=== PATIENT | female | born 1985 | race Caucasian/White ===

== ENCOUNTER 2016-07-10 22:48 | Emergency (ER) | payer SELFPAY ==
[2016-07-10] MEDS ORDERED: Proparacaine 0.5% Ophth Soln 15 ML Bottle EYELF STA (23:20)
[2016-07-10] MEDS ORDERED: Diphtheria,Pertussis(Acell),Tetanus Vaccine 0.5 ML Syringe IM ONE (23:55)
[2016-07-11] MEDS ORDERED: Acetaminophen/HYDROcodone 325-5 MG Tab PO ONE (00:10)
--- NOTE | 2016-07-11 00:12 | EDM.PDOC ---
ED HPI EYE COMPLAINT - General Stated Complaint: PAIN LT EYE Time Seen by Provider: 07/10/16 23:30 Source: Reports: Patient History Limitations: Reports: No limitations - History of Present Illness INITIAL COMMENTS - FREE TEXT/NARRATIVE: HISTORY AND PHYSICAL: History of present illness: [31-year-old female presents to the emergency department complaining of left eye injury. Apparently daughter accidentally poked patient in the eye and she said discomfort and foreign body sensation since. Vision baseline.] Review of systems: As per history of present illness and below otherwise all systems reviewed and negative. Past medical history: As per history of present illness and as reviewed below otherwise noncontributory. Surgical history: As per history of present illness and as reviewed below otherwise noncontributory. Social history: No reported history of drug or alcohol abuse. Family history: As per history of present illness and as reviewed below otherwise noncontributory. Physical exam: HEENT: Atraumatic, normocephalic, pupils reactive, negative for conjunctival pallor or scleral icterus, mucous membranes moist, throat clear, neck supple, nontender, trachea midline. Lungs: Clear to auscultation, breath sounds equal bilaterally, chest nontender. Heart: S1S2, regular, negative for clicks, rubs, or JVD. Abdomen: Soft, nondistended, nontender. Negative for masses or hepatosplenomegaly. Negative for costovertebral tenderness. Pelvis: Stable nontender. Genitourinary: Deferred. Rectal: Deferred. Extremities: Atraumatic, negative for cords or calf pain. Neurovascular unremarkable. Neuro: Awake, alert, oriented. Cranial nerves II through XII unremarkable. Cerebellum unremarkable. Motor and sensory unremarkable throughout. Exam nonfocal. Diagnostics: [Small area dye uptake with fluorescein staining consistent with corneal injury. No perforation of anterior chamber] Therapeutics: [Relief with Alcaine. Patient given antibiotics for the eye] Impression: [] Plan: [Patient has corneal injury/abrasion. Tetanus updated. Of some ointment prescribed. Patient aware to followup with ophthalmology in one day and return immediately for new severe or worsening symptoms] Definitive disposition and diagnosis as appropriate pending reevaluation and review of above. - Related Data Allergies/ADRs: Allergies ibuprofen Allergy (Verified 07/28/16 11:28) throat swelling Home Meds: Ambulatory Orders Medication Instructions Recorded Confirmed . 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: 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 History: Reports: None Neurological History: Reports: None Hematologic History: Reports: None - Infectious Disease History Infectious Disease History: Reports: None - Past Surgical History Female Surgical History: Reports: section, Tubal ligation Social & Family History - Family History Family Medical History: Noncontributory - Tobacco Use Smoking Status *Q: Former Smoker Second Hand Smoke Exposure: No - Caffeine Use Caffeine Use: Reports: Coffee Caffeine Use Comment: 2cups/day - Recreational Drug Use Recreational Drug Use: No ED ROS GENERAL - Review of Systems Review Of Systems: See Below (Per history of present illness) ED EXAM GENERAL W FULL EYE - Physical Exam Exam: See Below (Per history of present illness) Course - Vital Signs Last Recorded V/S: Last Vital Signs Temp 36.5 C 07/11/16 00:26 Pulse 71 07/11/16 00:26 Resp 16 07/11/16 00:26 BP 126/70 07/11/16 00:26 Pulse Ox 100 07/11/16 00:26 - Orders/Labs/Meds Meds: Medications Discontinued Medications Generic Name Dose Route Start Last Admin Trade Name Sola PRN Reason Stop Dose Admin Acetaminophen/Hydrocodone Bitart 1 tab 07/11/16 00:10 07/11/16 00:21 [place] 325-5 Mg PO 07/11/16 00:11 1 tab ONETIME ONE Administration Diphtheria/Tetanus/Acell Pertussis 0.5 ml 07/10/16 23:55 07/11/16 00:08 Adacel IM 07/10/16 23:56 0.5 ml .ONCE ONE Administration Proparacaine HCl 1 ml 07/10/16 23:20 07/10/16 23:28 Proparacaine 0.5% Ophth Soln EYELF 07/10/16 23:21 1 ml NOW STA Administration Departure - Departure Time of Disposition: 00:07 Disposition: Home, Self-Care 01 Condition: good Clinical Impression: Corneal injury of left eye, Anxiety, Tetanus-diphtheria vaccination administered at current visit Instructions: Corneal Abrasion Referrals: PCP,None [Primary Care Provider] - Forms: ED Department Discharge Additional Instructions: You have a corneal abrasion of your left eye. Your tetanus is updated. This will be good for 5 years. Use your antibiotic drops one drop every 2 hours up to total of 6 drops each day. Apply one quarter-inch of erythromycin ointment at bedtime. Followup with an supervisor special services in one to 2 days. Take ibuprofen and Tylenol as needed for pain tonight.
[2016-07-11 00:27] VITALS: BP 126/70
== END 2016-07-11 00:27 | disposition home or self-care (01) ==
LOC: MW.ED 22:48
DX: S05.02XA Injury of conjunctiva and corneal abrasion without foreign body, left eye, initial encounter (principal); Z23 Encounter for immunization; Z87.891 Personal history of nicotine dependence; X58.XXXA Exposure to other specified factors, initial encounter
CPT/HCPCS: 90471; 90715; 99283; A9270

== ENCOUNTER 2016-07-16 05:09 | Observation (INO) | payer SELFPAY ==
[2016-07-16 05:56] LABS: CHLORIDE,CL 106 mmol/L (98-110); SODIUM,NA 140 mmol/L (136-146)
[2016-07-16] MEDS ORDERED: Sodium Chloride 0.9% 1,000 ML IV ONE (06:09)
--- NOTE | 2016-07-16 06:10 | EDM.PDOC ---
ED HPI GENERAL MEDICAL PROBLEM - General Chief Complaint: Behavioral/Psych Stated Complaint: OVERDOSE Time Seen by Provider: 07/16/16 06:21 - History of Present Illness INITIAL COMMENTS - FREE TEXT/NARRATIVE: HISTORY AND PHYSICAL: History of present illness: Patient is a 30-year-old white female with the chief complaint of suicide attempt via overdose he states he took an unknown but estimated number of approximately 30 Paxil she denies any other ingestion or concerns she is history of depression and has been hospitalized psychiatrically on prior occasions patient also admits to using methamphetamine Review of systems: As per history of present illness and below otherwise all systems reviewed and negative. Past medical history: As per history of present illness and as reviewed below otherwise noncontributory. Surgical history: As per history of present illness and as reviewed below otherwise noncontributory. Social history: No reported history of drug or alcohol abuse. Family history: As per history of present illness and as reviewed below otherwise noncontributory. Physical exam: HEENT: Atraumatic, normocephalic, pupils reactive, negative for conjunctival pallor or scleral icterus, mucous membranes moist, throat clear, neck supple, nontender, trachea midline. Lungs: Clear to auscultation, breath sounds equal bilaterally, chest nontender. Heart: S1S2, regular, negative for clicks, rubs, or JVD. Abdomen: Soft, nondistended, nontender. Negative for masses or hepatosplenomegaly. Negative for costovertebral tenderness. Pelvis: Stable nontender. Genitourinary: Deferred. Rectal: Deferred. Extremities: Atraumatic, negative for cords or calf pain. Neurovascular unremarkable. Neuro: Awake, alert, oriented anxious tearful. Cranial nerves II through XII unremarkable. Cerebellum unremarkable. Motor and sensory unremarkable throughout. Exam nonfocal. Diagnostics: CBC CMP ECG urine drug screen aspirin Tylenol level poison control times Therapeutics: Normal saline 1 L bolus Impression: #1 depressive episode with suicide attempt #2 Paxil overdose #3 substance abuse Definitive disposition and diagnosis as appropriate pending reevaluation and review of above. 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: 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 History: Reports: None Neurological History: Reports: None Hematologic History: Reports: None - Infectious Disease History Infectious Disease History: Reports: None - Past Surgical History Female Surgical History: Reports: section, Tubal ligation Social & Family History - Family History Family Medical History: Noncontributory - Tobacco Use Smoking Status *Q: Never Smoker Second Hand Smoke Exposure: No - Caffeine Use Caffeine Use: Reports: Coffee Caffeine Use Comment: 2cups/day - Recreational Drug Use Recreational Drug Use: Yes Drug Use in Last 12 Months: Yes Recreational Drug Type: Reports: Methamphetamine ED ROS GENERAL - Review of Systems Review Of Systems: ROS reveals no pertinent complaints other than HPI. ED EXAM, GENERAL - Physical Exam Exam: See Below (See dictation) Course - Vital Signs Last Recorded V/S: Last Vital Signs Temp 37.0 C 07/16/16 05:13 Pulse 86 07/16/16 05:42 Resp 20 07/16/16 05:42 BP 138/78 07/16/16 05:42 Pulse Ox 94 L 07/16/16 05:42 - Orders/Labs/Meds Orders: Active Orders 24 hr Category Date Time Status EKG Documentation Completion [RC] STAT Care 07/16/16 05:20 Active DRUG SCREEN, URINE [URCHEM] Stat Lab 07/16/16 05:20 Uncollected FREE T3 [REF] Stat Lab 07/16/16 05:28 Received UA W/MICROSCOPIC [URIN] Stat Lab 07/16/16 05:20 Uncollected Sodium Chloride 0.9% [Normal Saline] 1,000 ml Med 07/16/16 06:09 Active IV .Bolus Medication Orders Sodium Chloride (Normal Saline) 1,000 mls @ 999 mls/hr IV .Bolus ONE Stop: 07/16/16 07:09 Last Admin: 07/16/16 06:14 Dose: 999 mls/hr Labs: Laboratory Tests 07/16/16 07/16/16 Range/Units 05:28 05:28 WBC 9.04 (4.0-11.0) K/uL RBC 4.31 (4.30-5.90) M/uL Hgb 13.0 (12.0-16.0) g/dL Hct 38.8 (36.0-46.0) % MCV 90.0 (80.0-98.0) fL MCH 30.2 (27.0-32.0) pg MCHC 33.5 (31.0-37.0) g/dL RDW Std Deviation 42.9 (28.0-62.0) fl RDW Coeff of Sulaiman 13 (11.0-15.0) % Plt Count 317 (150-400) K/uL MPV 9.70 (7.40-12.00) fL Neut % (Auto) 67.9 (48.0-80.0) % Lymph % (Auto) 18.9 (16.0-40.0) % [place] % (Auto) 12.8 (0.0-15.0) % Eos % (Auto) 0.2 (0.0-7.0) % Baso % (Auto) 0.2 (0.0-1.5) % Neut # (Auto) 6.1 H (1.4-5.7) K/uL Lymph # (Auto) 1.7 (0.6-2.4) K/uL [place] # (Auto) 1.2 H (0.0-0.8) K/uL Eos # (Auto) 0.0 (0.0-0.7) K/uL Baso # (Auto) 0.0 (0.0-0.1) K/uL Nucleated RBC % 0.0 /100WBC Nucleated RBCs # 0 K/uL Sodium 140 (136-146) mmol/L Potassium 3.3 L (3.5-5.1) mmol/L Chloride 106 (98-110) mmol/L Carbon Dioxide 21 (21-31) mmol/L BUN 15 (6.0-23.0) mg/dL Creatinine 0.8 (0.6-1.5) mg/dL Est Cr Clr Drug Dosing 99.99 mL/min Estimated GFR (MDRD) > 60.0 ml/min Glucose 112 H (60-110) mg/dL Calcium 9.1 (8.8-10.8) mg/dL Magnesium 1.5 (1.5-2.3) mEq/L Total Bilirubin 1.6 H (0.1-1.5) mg/dL AST 43 H (5-40) IU/L ALT 17 (8-54) IU/L Alkaline Phosphatase 84 (40-150) Total Protein 7.2 (6.0-8.0) g/dL Albumin 4.2 (3.5-5.0) g/dL Globulin 3.0 (2.0-3.5) g/dL Albumin/Globulin Ratio 1.4 (1.3-2.8) TSH 3rd Generation 2.49 (0.47-5.0) uIU/mL Salicylates < 5.0 (0-20) mg/dL Acetaminophen < 3.0 ug/mL Ethyl Alcohol < 10.0 mg/dL Meds: Medications Generic Name Dose Route Start Last Admin Trade Name Freq PRN Reason Stop Dose Admin Sodium Chloride 1,000 mls @ 999 mls/hr 07/16/16 06:09 07/16/16 06:14 Normal Saline IV 07/16/16 07:09 999 mls/hr .Bolus ONE Administration Departure - Departure Time of Disposition: 06:23 Disposition: Admitted As Inpatient 66 Condition: good Clinical Impression: Depressive disorder, Drug abuse, Overdose Forms: ED Department Discharge - My Orders Last 24 Hours: My Active Orders 07/16/16 05:20 EKG Documentation Completion [RC] STAT DRUG SCREEN, URINE [URCHEM] Stat UA W/MICROSCOPIC [URIN] Stat 07/16/16 05:28 FREE T3 [REF] Stat 07/16/16 06:09 Sodium Chloride 0.9% [Normal Saline] 1,000 ml IV .Bolus - Assessment/Plan Last 24 Hours: My Active Orders 07/16/16 05:20 EKG Documentation Completion [RC] STAT DRUG SCREEN, URINE [URCHEM] Stat UA W/MICROSCOPIC [URIN] Stat 07/16/16 05:28 FREE T3 [REF] Stat 07/16/16 06:09 Sodium Chloride 0.9% [Normal Saline] 1,000 ml IV .Bolus
[2016-07-16 06:18] LABS: ACETAMINOPHEN < 3.0 ug/mL
[2016-07-16] MEDS ORDERED: Temazepam 15 MG Cap PO PRN (09:56)
[2016-07-16] MEDS ORDERED: Acetaminophen 325 MG Tab PO PRN (09:56)
[2016-07-16] MEDS ORDERED: Potassium Chloride 10% 20 MEQ/15 ML Soln 30 ML UD Cup PO ONE (09:56)
--- NOTE | 2016-07-16 10:06 | PCM.HP ---
H&P History of Present Illness - General Date of Service: 07/16/16 Admit Problem/Dx: Admission Diagnosis/Problem Admission Diagnosis/Problem Suicide attempt Source of Information: Patient, Old records, Provider - History of Present Illness Initial Comments - Free Text/Narative: She was seen in the ED this am after intentional ingestion of paxil 40 mg unknown quantity suspected about 30. she states that she feels " mentally broken". She would like psychiatric help. She took nasal amphetamines within the past 24 hours. She had been "clean" for about two months. she uses "e cigarettes". she occasionally drinks alcohol but none within the past 24 hours. - Related Data Allergies/Adverse Reactions: Allergies Allergy/AdvReac Type Severity Reaction Status Date / Time ibuprofen Allergy throat Verified 07/16/16 05:12 swelling Home Medications: Home Meds Dextroamphetamine/Amphetamine [Adderall] 30 mg PO DAILY 07/16/16 [History] PARoxetine HCl [Paxil] 40 mg PO DAILY 07/16/16 [History] Past Medical History - Past Health History Medical/Surgical History: Denies Medical/Surgical History HEENT History: Reports: Other (see below) Other HEENT History: conjunctivitis Cardiovascular History: Reports: None. Denies: Cardiomyopathy, Hypertension, [place] Respiratory History: Reports: None. Denies: COPD Gastrointestinal History: Reports: None. 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 Denies: Alzheimers disease, CVA Psychiatric History: Reports: Depression Endocrine/Metabolic History: Denies: Elizabeth's disease, Diabetes, type I, Diabetes, type II Hematologic History: Reports: None - Infectious Disease History Infectious Disease History: Reports: None - Past Surgical History Female Surgical History: Reports: section, Tubal ligation Social & Family History - Family History Family Medical History: Noncontributory - Tobacco Use Smoking Status *Q: Never Smoker Second Hand Smoke Exposure: No - Caffeine Use Caffeine Use: Reports: Coffee Caffeine Use Comment: 2cups/day - Alcohol Use Alcohol Use Comment: she occasionally uses alcohol; not on a daily basis - Recreational Drug Use Recreational Drug Use: Yes Drug Use in Last 12 Months: Yes Recreational Drug Type: Reports: Methamphetamine H&P Review of Systems - Review of Systems: Review Of Systems: See Below General: Denies: fever, chills HEENT: Denies: sore throat Pulmonary: Reports: Shortness of Breath (she feels slight dyspnea which she relates to anxiety) Cardiovascular: Denies: chest pain Gastrointestinal: Denies: Abdominal pain, Anorexia, Black stool, Hematemesis, Hematochezia Genitourinary: Denies: dysuria, frequency, hematuria Psychiatric: Denies: agitation Exam - Exam Exam: See Below - Vital Signs Vital Signs: Last Vital Signs Temp 98.1 F 07/16/16 08:00 Pulse 86 07/16/16 05:42 Resp 14 07/16/16 09:00 BP 115/60 07/16/16 09:00 Pulse Ox 95 07/16/16 09:00 Weight: 87.7 kg - Exam General: alert, oriented, cooperative HEENT: Conjunctiva clear, EOMI Neck: supple, trachea midline Lungs: Clear to auscultation, Normal respiratory effort Cardiovascular: regular rate, regular rhythm Abdomen: soft. No: tenderness (Female) Exam: Deferred Rectal (Female) Exam: No: Deferred Extremities: No: edema Neurological: cranial nerves intact, normal speech Neuro Extensive - Mental Status: alert, normal mood/affect Neuro Extensive - Motor, Sensory, Reflexes: CN II-XII intact. No: facial palsy (L), facial palsy (R) Psychiatric: No: agitated - Patient Data Result Diagrams: 07/16/16 05:28 07/16/16 05:28 *Q Meaningful Use (ADM) - VTE *Q VTE Criteria *Q: - Stroke *Q Stroke Criteria *Q: - AMI *Q AMI Criteria *Q: - Problem List (1) Depressive disorder SNOMED Code(s): 07834494 ICD Code: F32.9 - MAJOR DEPRESSIVE DISORDER, SINGLE EPISODE, UNSPECIFIED Status: Acute Current Visit: Yes (2) Overdose SNOMED Code(s): 83296591 ICD Code: T50.901A - POISONING BY UNSP DRUG/MEDS/BIOL SUBST, ACCIDENTAL, INIT Status: Acute Current Visit: Yes Problem List Initiated/Reviewed/Updated: Yes Orders Last 24hrs: Active Orders 24 hr Category Date Time Status EKG 12 Lead [EKG Documentation Completion] [RC] ROUTINE Care 07/16/16 11:14 Active Oxygen Therapy [RC] PRN Care 07/16/16 09:57 Ordered Up ad Jenny [RC] ASDIRECTED Care 07/16/16 09:56 Ordered VTE/DVT Education [RC] PER UNIT ROUTINE Care 07/16/16 09:57 Ordered Vital Signs [RC] Q4H Care 07/16/16 09:57 Ordered Regular Diet [DIET] Diet 07/16/16 Breakfast Ordered DRUG SCREEN, URINE [URCHEM] Stat Lab 07/16/16 10:00 Uncollected HCG QUALITATIVE,SERUM [CHEM] Stat Lab 07/16/16 10:00 Ordered POTASSIUM,K [CHEM] AM Lab 07/17/16 05:11 Ordered Acetaminophen [Tylenol] Med 07/16/16 09:56 Ordered 650 mg PO Q4H PRN Potassium Chloride Med 07/16/16 09:56 Once 40 meq PO ONETIME ONE Temazepam [Restoril] Med 07/16/16 09:56 Ordered 15 mg PO BEDTIME PRN Resuscitation Status Routine Resus Stat 07/16/16 09:56 Ordered Medication Orders Acetaminophen (Tylenol) 650 mg PO Q4H PRN PRN Reason: Pain (Mild 1-3)/fever Potassium Chloride (Potassium Chloride) 40 meq PO ONETIME ONE Stop: 07/16/16 09:57 Temazepam (Restoril) 15 mg PO BEDTIME PRN PRN Reason: Sleep Assessment/Plan Comment:: will request telemedicine psych referral see orders. will check urine drug screen and serum HCG.
[2016-07-16] MEDS ORDERED: Potassium Chloride 20 MEQ Tab.ER PO ONE (10:30)
[2016-07-16] MEDS: LORazepam 2 MG/ML MDV IVPUSH PRN ×2 (11:17→13:19)
--- NOTE | 2016-07-16 11:18 | PCM.SN ---
- Free Text/Narrative Note: she appeared to be having an episode of panic. prn ativan ordered. I spoke with Dr Higuera who will be talking to patient tomorrow. I think that we need to monitor until tomorrow am.
[2016-07-16] MEDS ORDERED: Haloperidol Lactate 5 MG/ML SDV IM ONE ×2 (15:47→16:58)
[2016-07-16] MEDS ORDERED: diphenhydrAMINE 50 MG/ML SDV IVPUSH ONE (15:47)
[2016-07-16] MEDS ORDERED: LORazepam 2 MG/ML MDV IVPUSH ONE (15:48)
[2016-07-16] MEDS ORDERED: LORazepam 2 MG/ML MDV IVPUSH PRN (20:35)
[2016-07-16] MEDS: Topiramate 50 MG Tab PO SCH (20:59)
[2016-07-16] MEDS ORDERED: Haloperidol Lactate 5 MG/ML SDV IM SCH ×2 (21:00)
[2016-07-17] MEDS: Topiramate 50 MG Tab PO SCH (09:12)
--- NOTE | 2016-07-17 11:45 | PCM.DCSUM1 ---
Discharge Summary - Hospital Course Brief History: she was admitted to the ICU from the ED after an intentional paxil overdose. She also admitted to recent intake of methamphetamine by the nasal route. - Discharge Data Discharge Date: 07/17/16 Discharge Disposition: DC/Tfer to Psych Hosp/Unit 65 Condition: Fair - Discharge Diagnosis/Problem(s) (1) Depressive disorder SNOMED Code(s): 71816266 ICD Code: F32.9 - MAJOR DEPRESSIVE DISORDER, SINGLE EPISODE, UNSPECIFIED Status: Acute Current Visit: Yes (2) Overdose SNOMED Code(s): 73871356 ICD Code: T50.901A - POISONING BY UNSP DRUG/MEDS/BIOL SUBST, ACCIDENTAL, INIT Status: Acute Current Visit: Yes - Patient Summary/Data Hospital Course: she remained cooperative. She had severe anxiety treated with ativan. She had some hallucinations , thinking that people were in her room. She was successfully treated with haldol. She received a telepsych evaluation by Dr Ramakrishna Higuera. He recommended referral to a psych unit when medically stable. On the morning of transfer she has eaten and is cooperative. She is cooperative with transfer to a psychiatric facility. I spoke with Dr Gao, melon packer for psychiatry , at [facility]. We discussed the patient's care and she recommended that the patient go through the Emergency Department I also spoke with DR Elie Pickering , emergency department [place], who agrees. Elie Paz MD - Discharge Plan Home Medications: Home Meds Dextroamphetamine/Amphetamine [Adderall] 30 mg PO DAILY 07/16/16 [History] PARoxetine HCl [Paxil] 40 mg PO DAILY 07/16/16 [History] Forms: ED Department Discharge Referrals: PCP,None [Primary Care Provider] - - Patient Data Vitals - Most Recent: Last Vital Signs Temp 97.7 F 07/17/16 08:00 Pulse 86 07/16/16 05:42 Resp 17 07/17/16 08:00 BP 96/58 L 07/17/16 08:00 Pulse Ox 95 07/17/16 08:00 Weight - Most Recent: 88 kg I&O - Last 24 hours: Intake & Output 07/16/16 07/17/16 07/17/16 22:59 06:59 14:59 Intake Total 1240 200 Output Total 300 0 Balance 940 200 Lab Results - Last 24 hrs: Laboratory Results - last 24 hr 07/16/16 07/16/16 07/17/16 Range/Units 15:25 15:25 05:20 Potassium 3.7 (3.5-5.1) mmol/L Urine Color YELLOW Urine Appearance CLEAR Urine pH 5.5 (5.0-8.0) Ur Specific [place] >= 1.030 (1.001-1.035) Urine Protein TRACE (NEGATIVE) mg/dL Urine Glucose (UA) NEGATIVE (NEGATIVE) mg/dL Urine Ketones 40 H (NEGATIVE) mg/dL Urine Occult Blood SMALL H (NEGATIVE) Urine Nitrite NEGATIVE (NEGATIVE) Urine Bilirubin SMALL H (NEGATIVE) Urine Ictotest NEGATIVE Urine Urobilinogen 1.0 (<2.0) EU/dL Ur Leukocyte Esterase NEGATIVE (NEGATIVE) Urine RBC 0-2 (0-2/HPF) Urine WBC 1-3 (0-5/HPF) Ur Epithelial Cells FEW (NONE-FEW) Urine Bacteria FEW (NEGATIVE) Urine Opiates Screen NEGATIVE (NEGATIVE) Ur Oxycodone Screen NEGATIVE (NEGATIVE) Urine Methadone Screen NEGATIVE (NEGATIVE) Ur Barbiturates Screen NEGATIVE (NEGATIVE) Ur Phencyclidine Scrn NEGATIVE (NEGATIVE) Ur Amphetamine Screen POSITIVE (NEGATIVE) U Methamphetamines Scrn POSITIVE (NEGATIVE) U Benzodiazepines Scrn NEGATIVE (NEGATIVE) U Cocaine Metab Screen NEGATIVE (NEGATIVE) U Marijuana (THC) Screen NEGATIVE (NEGATIVE) Med Orders - Current: Current Medications Acetaminophen (Tylenol) 650 mg PO Q4H PRN PRN Reason: Pain (Mild 1-3)/fever Haloperidol Lactate (Haldol) 5 mg IM BEDTIME [facility] Last Admin: 07/16/16 20:59 Dose: 5 mg Lorazepam (Ativan) 0 mg IVPUSH Q2H PRN PRN Reason: Anxiety Temazepam (Restoril) 15 mg PO BEDTIME PRN PRN Reason: Sleep Topiramate (Topamax) 25 mg PO BID [facility] Last Admin: 07/17/16 09:12 Dose: 25 mg Discontinued Medications Diphenhydramine HCl (Benadryl) 50 mg IVPUSH ONETIME ONE Stop: 07/16/16 15:48 Last Admin: 07/16/16 15:52 Dose: 50 mg Haloperidol Lactate (Haldol) 2 mg IM BEDTIME [facility] Haloperidol Lactate (Haldol) 2 mg IM ONETIME ONE Stop: 07/16/16 15:48 Last Admin: 07/16/16 15:56 Dose: 2 mg Haloperidol Lactate (Haldol) 5 mg IM ONETIME ONE Stop: 07/16/16 16:59 Last Admin: 07/17/16 08:02 Dose: Not Given Sodium Chloride (Normal Saline) 1,000 mls @ 999 mls/hr IV .Bolus ONE Stop: 07/16/16 07:09 Last Admin: 07/16/16 06:14 Dose: 999 mls/hr Lorazepam (Ativan) 1 mg IVPUSH Q2H PRN PRN Reason: Anxiety Last Admin: 07/16/16 13:19 Dose: 1 mg Lorazepam (Ativan) 2 mg IVPUSH ONETIME ONE Stop: 07/16/16 15:49 Last Admin: 07/16/16 15:54 Dose: 2 mg Potassium Chloride (Potassium Chloride) 40 meq PO ONETIME ONE Stop: 07/16/16 09:57 Last Admin: 07/16/16 10:21 Dose: Not Given Potassium Chloride (Klor-Con M20) 40 meq PO ONETIME ONE Stop: 07/16/16 10:31 Last Admin: 07/16/16 11:17 Dose: 40 meq *Q Meaningful Use (DIS) - VTE *Q VTE Criteria *Q: - Stroke *Q Stroke Criteria *Q: - AMI *Q AMI Criteria *Q:
[2016-07-17 12:41] VITALS: BP 95/43
--- NOTE | 2016-07-18 14:14 | CONS ---
DATE OF CONSULTATION: 07/16/2016 DATE OF : 1985 PRIMARY CARE PHYSICIAN: None PCP This is a 60-minute inpatient clinical event. IDENTIFICATION: The patient is a 30-year-old female, who was admitted to the [facility] ICU in [place], [place], secondary to suicide attempt. She is seen for psychiatric evaluation. CHIEF COMPLAINT: "I guess I kind of feel broken." HISTORY OF PRESENT ILLNESS: The patient is a 30-year-old female, reports that she had been maintaining sobriety from long history of meth dependence, but then she relapsed and after she relapsed, she became quite despondent and overdosed on about 30 of her Paxil pills that she has been taking for depression. She states that she has been depressed because of her addiction. She has quite a few mood swings, and she is in fact feels even suicidal at this point in time. She denies that she is homicidal. She reports auditory hallucinations, where "I keep peer my family" calling auditory even though her family is not around her. She reports paranoid themes, racing thoughts, and ruminations and again is not feeling depressed about her situation. She states "I want stability for sure" and so far her goals are going forward. Main issue at this point in time is the patient does continue to feel depressed and paranoid and psychotic, and she is really unable to contract for safety when asked, number of times whether she is still suicidal or not. She states that she is open to getting hope though because she knows that she is not where she needs to be if she can stay sober. She was feeling better when she was maintaining sobriety. MEDICATION: At time presentation: 1. Paxil. The patient has been on this medication for three months. 2. Adderall. 3. Since being on the unit, the patient has been given Ativan. ALLERGIES: Ibuprofen which causes throat swelling. PAST MEDICAL HISTORY: 1. Bad back. 2. Status post tubal ligation. REVIEW OF SYSTEMS: Aside from musculoskeletal and reproductive, all other major organ systems are negative at this point in time for acute difficulties or complications. FAMILY PSYCHIATRIC AND CD HISTORY: The patient reports father had a history of alcoholism. PAST PSYCHIATRIC AND CD HISTORY: The patient reports two psychiatric hospitalizations in the past. She reports about six chemical dependency treatments in the past, last one being in February 2016 for meth. She has been sober for two months until relapsed in this past week. She has attended AA and NA in the past. She reports five suicide attempts in the past, and she does report some self-injurious behavior, tendencies usually "when I am in the middle of a fight" and she gets very angry. Denies any eating disorder history. Primary MD [place], [place]. PAST PSYCHIATRIC MEDICATION HISTORY: Includes Seroquel, Lexapro, trazodone. SOCIAL HISTORY: The patient born and raised in [place]. She has 2 siblings and 1 younger brother. The patient's parents when the patient was 17 years of age. She slipped time between her parents after that. Father was a barba. Mother worked as an apartment information systems project manager. The patient has lower education as a GED. 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 She has been x1 for nine years, has two children from the marriage. 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 The patient lives in [place] with her family. Denies any prior service. She is currently on probation from legal standpoint for some drug related charges. She states she is Taoist in terms of her pricila formation. MENTAL STATUS EXAM: The patient is a 30-year-old white female, in no apparent distress. Speech is regular rate and rhythm. The patient is cognitively oriented x2 to person and place but not to date. Psychomotor activities within normal limits. There is no abnormal motor movements or tics observed. Gait and station are not observed. The patient is bedbound during the course of interview and counseled. Mood is depressed. Affect is consistent with stated mood and distractible slightly, but the patient is able to be redirected during the course of interview as needed. The patient endorses some suicidal ideation, but denied homicidal ideation. She has endorsing non command type auditory hallucinations. Thought processes are also significant for paranoid themes, racing thoughts, and ruminations. There is no acute manic symptoms or loose associations evident. Judgment and insight do appear impaired at this point in time. Motivation for help appears fair to good. VITAL SIGNS: At the time of presentation, 100/51, 81, 16, 98.6 degrees. IMPRESSION: Bruno I: 1. Depression, not otherwise specified, F32.9. 2. Suspected attention-deficit/hyperactivity disorder, F90.2. 3. Methamphetamine dependence. 4. Alcohol dependence. 5. Rule out bipolar affective disease, mixed type. 6. Psychosis, not otherwise specified. Bruno II: No diagnosis at this time. Bruno III: 1. History of bad back. 2. Status post tubal ligation. Bruno IV: Severe. Bruno V: 50. PLAN: 1. Sobriety. 2. Discontinue Paxil, this maybe worsening underlying manic condition. 3. Discontinue Adderall. This does not appear to be a good fit for this patient given her history of methamphetamine dependence. 4. Begin Haldol 2 mg at bedtime for clarity of thought and relieve psychotic symptoms as well as help with mood stability. 5. Begin Topamax 25 mg b.i.d. also for mood instability while the patient remains on the unit. 6. Recommend chemical dependency treatment once the patient is medically stabilized. 7. Also when the patient is medically stabilized, I would recommend the patient to be transferred to inpatient Psychiatry for further psychiatric medication stabilization and safety felt the patient is more stable and able to think more clearly contract for safety, not being danger to herself or others. 8. We will continue to follow up with patient on an as-needed basis as well as she remains on MICU. 9. We will follow up in the interim if there are any changes in the patient's condition. 10.Crisis plan is in place. DAMARI HECTOR /[id number]
== END 2016-07-17 12:15 ==
LOC: MW.ED 05:09 → MW.ICU 06:24
PROVIDERS: ADMIT Family Medicine; ATTEND Family Medicine
DX: T43.222A Poisoning by selective serotonin reuptake inhibitors, intentional self-harm, initial encounter (principal); F32.9 Major depressive disorder, single episode, unspecified; F41.0 Panic disorder [episodic paroxysmal anxiety]; F10.20 Alcohol dependence, uncomplicated; F15.20 Other stimulant dependence, uncomplicated; Z88.8 Allergy status to other drugs, medicaments and biological substances
CPT/HCPCS: 36415; 80053; 80305; 81001; 83735; 84132; 84443; 84481; 84703; 85025; 93005; 99285; A9270; G0480; J1200; J1630; J2060; J7040; 96361; 96372; 96374; 96375; 96376; 99283; G0378

== ENCOUNTER 2016-07-28 11:04 | Emergency (ER) | payer SELFPAY ==
[2016-07-28] MEDS ORDERED: Sodium Chloride 0.9% 10 ML Syringe FLUSH PRN (11:33)
[2016-07-28] MEDS ORDERED: Sodium Chloride 0.9% 2.5 ML Syringe FLUSH PRN (11:33)
--- NOTE | 2016-07-28 11:40 | EDM.PDOC ---
ED HPI GENERAL MEDICAL PROBLEM - General Chief Complaint: Behavioral/Psych Stated Complaint: UNK Time Seen by Provider: 07/28/16 11:23 - History of Present Illness INITIAL COMMENTS - FREE TEXT/NARRATIVE: HISTORY AND PHYSICAL: History of present illness: The patient is a 31-year-old female who has a long-standing history of methamphetamine dependence and depression who presents after trying to attempt to hang herself with a blanket off the top bunk bed in penitentiary yesterday. The patient was admitted to our hospital on July 18 for the methamphetamine and Paxil overdose and was evaluated by telemetry psychiatry, Dr. Higuera, for this admission. At that point he felt that she was still a suicide risk and needed to be transferred to [facility] which she was. According to the patient she was there for 2 days they "adjusted her medication and discharged her" and she does not feel that she got much help. According to Dr. Higuera's note the patient has had 6 prior suicide attempts and has done 6 chemical dependency treatment programs in the past the last one being in February of 2016. She has a long-standing history of depression and Meth dependence with the depression being fueled by her methamphetamine use. He questioned if she had a bipolar affective disease, mixed type and at that time he evaluated her she was having some methamphetamine psychosis. The patient states that her last methamphetamine use was 2 days ago and she was arrested yesterday. She states that she has been having hallucinations, visual, and she attempted to hurt herself because she is tired of her dependency and she is not getting any help. She states she tied a blanket around her neck and then tried to pull it tight as she could by moving her body off the bunk bed as much as she could. She says she was not completely off the bed as this was technically impossible. She says she passed out and when she awoke she removed the blanket and then did not inform the longterm staff that she did this until this morning. Patient states she still feels depressed and suicidal and is tired of living her life like this. She currently denies any neck pain other bony or soft tissue and has had no trouble swallowing or speaking. She does complain of bilateral eye discomfort and the staff noticed her injected sclera bilaterally. The patient denies any chest pain shortness of breath confusion neurosensory changes abdominal pain nausea vomiting or extremity discomfort. Review of systems: As per history of present illness and below otherwise all systems reviewed and negative. Past medical history: As per history of present illness and as reviewed below otherwise noncontributory. Surgical history: As per history of present illness and as reviewed below otherwise noncontributory. Social history: No reported history of drug or alcohol abuse. Family history: As per history of present illness and as reviewed below otherwise noncontributory. Physical exam: General: Well-developed tearful female who is nontoxic and answers questions appropriately but is exhibiting a depressed affect. Vital signs of a noted by me. The patient is in handcuffs with the officer at the bedside HEENT: normocephalic, pupils reactive, EOM intact, negative for conjunctival pallor or scleral icterus but there are bilateral subconjunctival hemorrhages that are visualized and there is some ecchymosis at the medial eyelid area bilaterally without any palpable defects,, mucous membranes moist, throat clear , neck supple, nontender, trachea midline. There are no midline step-offs tenderness defects of the cervical spine and there is no visible soft tissue swelling crepitus ecchymosis or trauma visualized. On palpation of the soft tissue neck there is no tenderness and there is no stridor Lungs: Clear to auscultation, breath sounds equal bilaterally, chest nontender. No work or breathing or sensory muscle use Heart: S1S2, regular, negative for clicks, rubs, or JVD. Abdomen: Soft, nondistended, nontender. Negative for masses or hepatosplenomegaly. Negative for costovertebral tenderness. Pelvis: Stable nontender. Genitourinary: Deferred. Rectal: Deferred. Extremities: Atraumatic, negative for cords or calf pain. Neurovascular unremarkable. Full range of motion without any defects or deficits Neuro: Awake, alert, oriented. Cranial nerves II through XII unremarkable. Cerebellum unremarkable. Motor and sensory unremarkable throughout. Exam nonfocal. Diagnostics: CBC CMP Tylenol and aspirin levels, alcohol level, TSH UA UCG UDS CT scan of the head and soft tissue neck urine culture Therapeutics: Keflex [id number]: Case was discussed with the psychiatrist at [facility] in [place], Dr. Rosas, who accepts the patient for transfer. 1150a: Case was discussed with Dr. Murrell in the ER at [facility] also accepts the patient for transfer. He is aware of my workup and that I will get CT results prior to transfer. Patient is aware of this need for transfer and is tearful and she does not feel that she is getting much help there but she that the transfer will be made as she is suicidal. 1310: We are currently awaiting the CT scan reports and transportation is being arranged to transfer the patient to [facility]. I will review the CT scan findings and disposition to [facility]. Impression: Suicide attempt last evening, history of same with depression and methamphetamine addiction; UTI asymptomatic Definitive disposition and diagnosis as appropriate pending reevaluation and review of above. Bilateral Eyes Pain Score (Numeric/FACES): 7 - Related Data Allergies Allergy/AdvReac Type Severity Reaction Status Date / Time ibuprofen Allergy throat Verified 07/28/16 11:28 swelling Home Meds: Home Meds . [No Known Home Meds] 07/28/16 [History] Past Medical History - Past Health History Medical/Surgical History: Denies Medical/Surgical History HEENT History: Reports: Other (see below) Other HEENT History: conjunctivitis Cardiovascular History: Reports: None. Denies: Cardiomyopathy, Hypertension, [place] Respiratory History: Reports: None. Denies: COPD Gastrointestinal History: Reports: None. 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 Denies: Alzheimers disease, CVA Psychiatric History: Reports: Depression Hematologic History: Reports: None - Infectious Disease History Infectious Disease History: Reports: None - Past Surgical History Female Surgical History: Reports: section, Tubal ligation Social & Family History - Family History Family Medical History: Noncontributory - Tobacco Use Smoking Status *Q: Never Smoker Second Hand Smoke Exposure: No - Caffeine Use Caffeine Use: Reports: Coffee Caffeine Use Comment: 2cups/day - Recreational Drug Use Recreational Drug Use: Yes Drug Use in Last 12 Months: Yes Recreational Drug Type: Reports: Methamphetamine ED ROS GENERAL - Review of Systems Review Of Systems: ROS reveals no pertinent complaints other than HPI. ED EXAM, GENERAL - Physical Exam Exam: See Below (See dictation) Course - Vital Signs Last Recorded V/S: Last Vital Signs Temp 37.6 C 07/28/16 11:30 Pulse 70 07/28/16 12:15 Resp 18 07/28/16 12:15 BP 107/66 07/28/16 12:15 Pulse Ox 97 07/28/16 12:15 - Orders/Labs/Meds Orders: Active Orders 24 hr Category Date Time Status Cardiac Monitoring [RC] . DIRECTED Care 07/28/16 11:23 Active EKG Documentation Completion [RC] STAT Care 07/28/16 11:23 Active Oxygen Therapy, ED [RC] ASDIRECTED Care 07/28/16 11:23 Active Pulse Oximetry [RC] ASDIRECTED Care 07/28/16 11:23 Active Head wo Cont [CT] Stat Exams 07/28/16 11:32 Taken Soft Tissue Neck w Cont [CT] Stat Exams 07/28/16 11:32 Taken CULTURE URINE [RM] Stat Lab 07/28/16 11:31 Received Sodium Chloride 0.9% [Saline Flush] Med 07/28/16 11:33 Active 10 ml FLUSH ASDIRECTED PRN Sodium Chloride 0.9% [Saline Flush] Med 07/28/16 11:33 Active 2.5 ml FLUSH ASDIRECTED PRN Saline Lock Insert [OM.PC] Stat Oth 07/28/16 11:33 Ordered Medication Orders Sodium Chloride (Saline Flush) 10 ml FLUSH ASDIRECTED PRN PRN Reason: Keep Vein Open Sodium Chloride (Saline Flush) 2.5 ml FLUSH ASDIRECTED PRN PRN Reason: Keep Vein Open Labs: Laboratory Tests 07/28/16 07/28/16 07/28/16 Range/Units 11:31 11:31 11:31 WBC (4.0-11.0) K/uL RBC (4.30-5.90) M/uL Hgb (12.0-16.0) g/dL Hct (36.0-46.0) % MCV (80.0-98.0) fL MCH (27.0-32.0) pg MCHC (31.0-37.0) g/dL RDW Std Deviation (28.0-62.0) fl RDW Coeff of Sulaiman (11.0-15.0) % Plt Count (150-400) K/uL MPV (7.40-12.00) fL Neut % (Auto) (48.0-80.0) % Lymph % (Auto) (16.0-40.0) % Owen % (Auto) (0.0-15.0) % Eos % (Auto) (0.0-7.0) % Baso % (Auto) (0.0-1.5) % Neut # (Auto) (1.4-5.7) K/uL Lymph # (Auto) (0.6-2.4) K/uL Owen # (Auto) (0.0-0.8) K/uL Eos # (Auto) (0.0-0.7) K/uL Baso # (Auto) (0.0-0.1) K/uL Nucleated RBC % /100WBC Nucleated RBCs # K/uL Sodium (136-146) mmol/L Potassium (3.5-5.1) mmol/L Chloride (98-110) mmol/L Carbon Dioxide (21-31) mmol/L BUN (6.0-23.0) mg/dL Creatinine (0.6-1.5) mg/dL Est Cr Clr Drug Dosing mL/min Estimated GFR (MDRD) ml/min Glucose (60-110) mg/dL Calcium (8.8-10.8) mg/dL Total Bilirubin (0.1-1.5) mg/dL AST (5-40) IU/L ALT (8-54) IU/L Alkaline Phosphatase (40-150) Total Protein (6.0-8.0) g/dL Albumin (3.5-5.0) g/dL Globulin (2.0-3.5) g/dL Albumin/Globulin Ratio (1.3-2.8) TSH 3rd Generation (0.47-5.0) uIU/mL Urine Color YELLOW Urine Appearance CLOUDY Urine pH 5.5 (5.0-8.0) Ur Specific Darlington 1.025 (1.001-1.035) Urine Protein NEGATIVE (NEGATIVE) mg/dL Urine Glucose (UA) NEGATIVE (NEGATIVE) mg/dL Urine Ketones 40 H (NEGATIVE) mg/dL Urine Occult Blood TRACE-INTACT (NEGATIVE) Urine Nitrite NEGATIVE (NEGATIVE) Urine Bilirubin SMALL H (NEGATIVE) Urine Ictotest NEGATIVE Urine Urobilinogen 0.2 (<2.0) EU/dL Ur Leukocyte Esterase SMALL (NEGATIVE) Urine RBC 0-3 (0-2/HPF) Urine WBC 1-3 (0-5/HPF) Ur Epithelial Cells MODERATE (NONE-FEW) Amorphous Sediment LIGHT (NEGATIVE) Urine Bacteria 1+ H (NEGATIVE) Urine Mucus LIGHT (NONE-MOD) Urine HCG, Qual NEGATIVE (NEGATIVE) Salicylates (0-20) mg/dL Urine Opiates Screen NEGATIVE (NEGATIVE) Ur Oxycodone Screen NEGATIVE (NEGATIVE) Urine Methadone Screen NEGATIVE (NEGATIVE) Acetaminophen ug/mL Ur Barbiturates Screen NEGATIVE (NEGATIVE) Ur Phencyclidine Scrn NEGATIVE (NEGATIVE) Ur Amphetamine Screen POSITIVE (NEGATIVE) U Methamphetamines Scrn POSITIVE (NEGATIVE) U Benzodiazepines Scrn NEGATIVE (NEGATIVE) U Cocaine Metab Screen NEGATIVE (NEGATIVE) U Marijuana (THC) Screen NEGATIVE (NEGATIVE) Ethyl Alcohol mg/dL 07/28/16 07/28/16 Range/Units 11:34 11:34 WBC 8.98 (4.0-11.0) K/uL RBC 4.33 (4.30-5.90) M/uL Hgb 13.2 (12.0-16.0) g/dL Hct 39.8 (36.0-46.0) % MCV 91.9 (80.0-98.0) fL MCH 30.5 (27.0-32.0) pg MCHC 33.2 (31.0-37.0) g/dL RDW Std Deviation 45.4 (28.0-62.0) fl RDW Coeff of Sulaiman 14 (11.0-15.0) % Plt Count 296 (150-400) K/uL MPV 10.00 (7.40-12.00) fL Neut % (Auto) 70.5 (48.0-80.0) % Lymph % (Auto) 17.8 (16.0-40.0) % Owen % (Auto) 10.8 (0.0-15.0) % Eos % (Auto) 0.7 (0.0-7.0) % Baso % (Auto) 0.2 (0.0-1.5) % Neut # (Auto) 6.3 H (1.4-5.7) K/uL Lymph # (Auto) 1.6 (0.6-2.4) K/uL Owen # (Auto) 1.0 H (0.0-0.8) K/uL Eos # (Auto) 0.1 (0.0-0.7) K/uL Baso # (Auto) 0.0 (0.0-0.1) K/uL Nucleated RBC % 0.0 /100WBC Nucleated RBCs # 0 K/uL Sodium 141 (136-146) mmol/L Potassium 3.5 (3.5-5.1) mmol/L Chloride 108 (98-110) mmol/L Carbon Dioxide 20 L (21-31) mmol/L BUN 14 (6.0-23.0) mg/dL Creatinine 0.8 (0.6-1.5) mg/dL Est Cr Clr Drug Dosing 99.08 mL/min Estimated GFR (MDRD) > 60.0 ml/min Glucose 98 (60-110) mg/dL Calcium 9.3 (8.8-10.8) mg/dL Total Bilirubin 1.0 (0.1-1.5) mg/dL AST 24 (5-40) IU/L ALT 20 (8-54) IU/L Alkaline Phosphatase 73 (40-150) Total Protein 6.9 (6.0-8.0) g/dL Albumin 4.0 (3.5-5.0) g/dL Globulin 2.9 (2.0-3.5) g/dL Albumin/Globulin Ratio 1.4 (1.3-2.8) TSH 3rd Generation 1.29 (0.47-5.0) uIU/mL Urine Color Urine Appearance Urine pH (5.0-8.0) Ur Specific Darlington (1.001-1.035) Urine Protein (NEGATIVE) mg/dL Urine Glucose (UA) (NEGATIVE) mg/dL Urine Ketones (NEGATIVE) mg/dL Urine Occult Blood (NEGATIVE) Urine Nitrite (NEGATIVE) Urine Bilirubin (NEGATIVE) Urine Ictotest Urine Urobilinogen (<2.0) EU/dL Ur Leukocyte Esterase (NEGATIVE) Urine RBC (0-2/HPF) Urine WBC (0-5/HPF) Ur Epithelial Cells (NONE-FEW) Amorphous Sediment (NEGATIVE) Urine Bacteria (NEGATIVE) Urine Mucus (NONE-MOD) Urine HCG, Qual (NEGATIVE) Salicylates < 5.0 (0-20) mg/dL Urine Opiates Screen (NEGATIVE) Ur Oxycodone Screen (NEGATIVE) Urine Methadone Screen (NEGATIVE) Acetaminophen < 3.0 ug/mL Ur Barbiturates Screen (NEGATIVE) Ur Phencyclidine Scrn (NEGATIVE) Ur Amphetamine Screen (NEGATIVE) U Methamphetamines Scrn (NEGATIVE) U Benzodiazepines Scrn (NEGATIVE) U Cocaine Metab Screen (NEGATIVE) U Marijuana (THC) Screen (NEGATIVE) Ethyl Alcohol < 10.0 mg/dL Meds: Medications Generic Name Dose Route Start Last Admin Trade Name Freq PRN Reason Stop Dose Admin Sodium Chloride 10 ml 07/28/16 11:33 Saline Flush FLUSH ASDIRECTED PRN Keep Vein Open Sodium Chloride 2.5 ml 07/28/16 11:33 Saline Flush FLUSH ASDIRECTED PRN Keep Vein Open Discontinued Medications Generic Name Dose Route Start Last Admin Trade Name Freq PRN Reason Stop Dose Admin Cephalexin 500 mg 07/28/16 12:55 07/28/16 13:04 Keflex PO 07/28/16 12:56 500 mg ONETIME ONE Administration Iopamidol 80 ml 07/28/16 12:57 07/28/16 12:58 Isovue Multipack-370 (76%) IVPUSH 07/28/16 12:58 80 ml ONETIME STA Administration Departure - Departure Time of Disposition: 13:16 Disposition: DC/Tfer to Acute Hospital 02 Condition: good Clinical Impression: Self-harm, Depressive disorder Forms: ED Department Discharge - My Orders Last 24 Hours: My Active Orders 07/28/16 11:23 Cardiac Monitoring [RC] . DIRECTED EKG Documentation Completion [RC] STAT Oxygen Therapy, ED [RC] ASDIRECTED Pulse Oximetry [RC] ASDIRECTED 07/28/16 11:31 CULTURE URINE [RM] Stat 07/28/16 11:32 Head wo Cont [CT] Stat Soft Tissue Neck w Cont [CT] Stat 07/28/16 11:33 Sodium Chloride 0.9% [Saline Flush] 10 ml FLUSH ASDIRECTED PRN Sodium Chloride 0.9% [Saline Flush] 2.5 ml FLUSH ASDIRECTED PRN Saline Lock Insert [OM.PC] Stat - Assessment/Plan Last 24 Hours: My Active Orders 07/28/16 11:23 Cardiac Monitoring [RC] . DIRECTED EKG Documentation Completion [RC] STAT Oxygen Therapy, ED [RC] ASDIRECTED Pulse Oximetry [RC] ASDIRECTED 07/28/16 11:31 CULTURE URINE [RM] Stat 07/28/16 11:32 Head wo Cont [CT] Stat Soft Tissue Neck w Cont [CT] Stat 07/28/16 11:33 Sodium Chloride 0.9% [Saline Flush] 10 ml FLUSH ASDIRECTED PRN Sodium Chloride 0.9% [Saline Flush] 2.5 ml FLUSH ASDIRECTED PRN Saline Lock Insert [OM.PC] Stat
[2016-07-28 12:09] LABS: CHLORIDE,CL 108 mmol/L (98-110); SODIUM,NA 141 mmol/L (136-146)
[2016-07-28 12:23] LABS: ACETAMINOPHEN < 3.0 ug/mL
[2016-07-28] MEDS ORDERED: Cephalexin 500 MG Cap PO ONE (12:55)
[2016-07-28] MEDS ORDERED: Iopamidol 755 MG/ML 500 ML Multipack Bottle IVPUSH STA (12:57)
--- NOTE | 2016-07-28 13:21 | CT ---
EXAMINATION: Non contrast CT head. Coronal and sagittal reformats. HISTORY: Pain FINDINGS: No evidence of intra or extra axial hemorrhage, mass, midline shift, hydrocephalus or edema. No hypoattenuation changes in the major vascular territories to suggest acute infarct. No abnormal intracranial calcifications are detected. No evidence of substantial vascular calcifica tions. Small mucous retention cysts are noted within the sphenoid sinuses. The mastoid air cells are clear. Pituitary fossa appears unremarkable. Calvarium is intact. No evidence of skull fracture. IMPRESSION: No acute intracranial findings.
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
[2016-07-28 13:43] VITALS: BP 117/70
== END 2016-07-28 13:38 ==
LOC: MW.ED 11:04
DX: T14.91 Suicide attempt (principal); F32.9 Major depressive disorder, single episode, unspecified; F15.20 Other stimulant dependence, uncomplicated; N39.0 Urinary tract infection, site not specified; Z88.6 Allergy status to analgesic agent; X83.8XXA Intentional self-harm by other specified means, initial encounter
CPT/HCPCS: 36415; 70450; 70491; 80053; 80305; 81001; 81025; 84443; 85025; 87086; 93005; 99285; A9270; G0480; Q9967

== ENCOUNTER 2016-10-22 23:47 | Emergency (ER) | payer OTHER ==
--- NOTE | 2016-10-23 00:04 | EDM.PDOC ---
ED HPI GENERAL MEDICAL PROBLEM - General Chief Complaint: General Stated Complaint: PT HAS SORE THROAT AND RT BREAST SWOLLEN Time Seen by Provider: 10/23/16 00:00 - History of Present Illness INITIAL COMMENTS - FREE TEXT/NARRATIVE: HISTORY AND PHYSICAL: History of present illness: Patient 31-year-old female presents with concern of right breast pain 3 days and sore throat she denies any other concern she denies trauma denies fever chills nausea vomiting Review of systems: As per history of present illness and below otherwise all systems reviewed and negative. Past medical history: As per history of present illness and as reviewed below otherwise noncontributory. Surgical history: As per history of present illness and as reviewed below otherwise noncontributory. Social history: No reported history of drug or alcohol abuse. Family history: As per history of present illness and as reviewed below otherwise noncontributory. Physical exam: HEENT: Atraumatic, normocephalic, pupils reactive, negative for conjunctival pallor or scleral icterus, mucous membranes moist, throat clear, neck supple, nontender, trachea midline. Lungs: Clear to auscultation, breath sounds equal bilaterally, chest nontender. Breast exam negative Heart: S1S2, regular, negative for clicks, rubs, or JVD. Abdomen: Soft, nondistended, nontender. Negative for masses or hepatosplenomegaly. Negative for costovertebral tenderness. Pelvis: Stable nontender. Genitourinary: Deferred. Rectal: Deferred. Extremities: Atraumatic, negative for cords or calf pain. Neurovascular unremarkable. Neuro: Awake, alert, oriented. Cranial nerves II through XII unremarkable. Cerebellum unremarkable. Motor and sensory unremarkable throughout. Exam nonfocal. Diagnostics: Rapid strep Therapeutics: None Impression: #1 right breast pain #2 sore throat Definitive disposition and diagnosis as appropriate pending reevaluation and review of above. right breast Pain Score (Numeric/FACES): 5 - Related Data Allergies Allergy/AdvReac Type Severity Reaction Status Date / Time No Known Allergies Allergy Verified 10/22/16 23:55 Home Meds: Home Meds . 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: 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 History: Reports: None Neurological History: Reports: None Psychiatric History: Reports: Depression Hematologic History: Reports: None - Infectious Disease History Infectious Disease History: Reports: None - Past Surgical History Female Surgical History: Reports: Section, Tubal Ligation Social & Family History - Family History Family Medical History: Noncontributory - Tobacco Use Smoking Status *Q: Never Smoker Years of Tobacco use: 20 Packs/Tins Daily: 1 Second Hand Smoke Exposure: No - Caffeine Use Caffeine Use: Reports: Coffee Caffeine Use Comment: 2cups/day - Recreational Drug Use Recreational Drug Use: Yes Drug Use in Last 12 Months: Yes Recreational Drug Type: Reports: Methamphetamine ED ROS GENERAL - Review of Systems Review Of Systems: ROS reveals no pertinent complaints other than HPI. ED EXAM, GENERAL - Physical Exam Exam: See Below (See dictation) Course - Vital Signs Last Recorded V/S: Last Vital Signs Temp 36.5 C 10/22/16 23:56 Pulse 81 10/22/16 23:56 Resp 18 10/22/16 23:56 BP 115/61 10/22/16 23:56 Pulse Ox 100 10/22/16 23:56 Departure - Departure Time of Disposition: 00:03 Disposition: Home, Self-Care 01 Condition: Good Clinical Impression: Breast pain - Discharge Information Forms: ED Department Discharge Additional Instructions: The following information is given to patients seen in the emergency department who are being discharged to home. This information is to outline your options for follow-up care. We provide all patients seen in our emergency department with a follow-up referral. The need for follow-up, as well as the timing and circumstances, are variable depending upon the specifics of your emergency department visit. If you don't have a primary care physician on staff, we will provide you with a referral. We always advise you to contact your personal physician following an emergency department visit to inform them of the circumstance of the visit and for follow-up with them and/or the need for any referrals to a consulting specialist. The emergency department will also refer you to a specialist when appropriate. This referral assures that you have the opportunity for followup care with a specialist. All of these measure are taken in an effort to provide you with optimal care, which includes your followup. Under all circumstances we always encourage you to contact your private physician who remains a resource for coordinating your care. When calling for followup care, please make the office aware that this follow-up is from your recent emergency room visit. If for any reason you are refused follow-up, please contact the [facility] emergency department at and asked to speak to the emergency department charge nurse. [facility] Specialty Care - General Surgery Professional Building [address] [place] [address], [address] [place] [address] Follow up primary medical doctor/general surgery as discussed Motrin or Tylenol as directed return as needed as discussed
[2016-10-23 01:31] VITALS: BP 133/67
== END 2016-10-23 01:25 | disposition home or self-care (01) ==
LOC: MW.ED 23:47
DX: N64.4 Mastodynia (principal); J02.9 Acute pharyngitis, unspecified
CPT/HCPCS: 87081; 87880; 99282; 99283

== ENCOUNTER 2018-09-14 16:18 | Emergency (ER) | payer BC, OTHER ==
--- NOTE | 2018-09-14 16:34 | EDM.PDOC ---
ED HPI GENERAL MEDICAL PROBLEM - General Chief Complaint: Respiratory Problem Stated Complaint: CHEST COLD Time Seen by Provider: 09/14/18 16:34 Source of Information: Reports: Patient - History of Present Illness INITIAL COMMENTS - FREE TEXT/NARRATIVE: HISTORY AND PHYSICAL: History of present illness: [Patient with smoking history one pack per day since teen years presents with persistent cough for 2 weeks nonproductive no shortness of breath or wheeze ] Review of systems: As per history of present illness and below otherwise all systems reviewed and negative. Past medical history: As per history of present illness and as reviewed below otherwise noncontributory. Surgical history: As per history of present illness and as reviewed below otherwise noncontributory. Social history: No reported history of drug or alcohol abuse. Family history: As per history of present illness and as reviewed below otherwise noncontributory. Physical exam: HEENT: Atraumatic, normocephalic, pupils reactive, negative for conjunctival pallor or scleral icterus, mucous membranes moist, throat clear, neck supple, nontender, trachea midline. Lungs: Clear to auscultation, breath sounds equal bilaterally, chest nontender. Heart: S1S2, regular, negative for clicks, rubs, or JVD. Abdomen: Soft, nondistended, nontender. Negative for masses or hepatosplenomegaly. Negative for costovertebral tenderness. Pelvis: Stable nontender. Genitourinary: Deferred. Rectal: Deferred. Extremities: Atraumatic, negative for cords or calf pain. Neurovascular unremarkable. Neuro: Awake, alert, oriented. Cranial nerves II through XII unremarkable. Cerebellum unremarkable. Motor and sensory unremarkable throughout. Exam nonfocal. Diagnostics: [Chest 2 views HCG]-performed due to tubal ligation history Therapeutics: [ DuoNeb Solu-Medrol 125 mg IM ] Z-Jacinto Prednisone HFA Impression: [ acute bronchitis ] Definitive disposition and diagnosis as appropriate pending reevaluation and review of above. 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 History: Reports: None Neurological History: Reports: None Psychiatric History: Reports: Depression Hematologic History: Reports: None - Infectious Disease History Infectious Disease History: Reports: None - Past Surgical History Female Surgical History: Reports: Section, Tubal Ligation Social & Family History - Family History Family Medical History: Noncontributory - Caffeine Use Caffeine Use: Reports: Coffee Caffeine Use Comment: 2cups/day ED ROS GENERAL - Review of Systems Review Of Systems: See Below ED EXAM, GENERAL - Physical Exam Exam: See Below Course - Vital Signs Last Recorded V/S: Last Vital Signs Temp 97 F 09/14/18 16:31 Pulse 95 09/14/18 16:31 Resp 18 09/14/18 16:31 BP 120/68 09/14/18 16:31 Pulse Ox 100 09/14/18 16:31 - Orders/Labs/Meds Orders: Active Orders 24 hr Category Date Time Status RT Aerosol Therapy [RC] ASDIRECTED Care 09/14/18 16:37 Active Chest 2V [CR] Stat Exams 09/14/18 16:34 Taken Meds: Medications Discontinued Medications Generic Name Dose Route Start Last Admin Trade Name Bertq PRN Reason Stop Dose Admin Albuterol/Ipratropium 3 ml 09/14/18 16:36 09/14/18 16:46 Duoneb 3.0-0.5 Mg/3 Ml NEB 09/14/18 16:37 3 ml ONETIME ONE Administration Methylprednisolone Sodium Succinate 125 mg 09/14/18 16:36 09/14/18 16:45 Solu-Medrol IM 09/14/18 16:37 125 mg ONETIME ONE Administration Departure - Departure Time of Disposition: 16:54 Disposition: Home, Self-Care 01 Condition: Good Clinical Impression: Bronchitis - Discharge Information Referrals: PCP,Unknown [Primary Care Provider] - Forms: ED Department Discharge Additional Instructions: The following information is given to patients seen in the emergency department who are being discharged to home. This information is to outline your options for follow-up care. We provide all patients seen in our emergency department with a follow-up referral. The need for follow-up, as well as the timing and circumstances, are variable depending upon the specifics of your emergency department visit. If you don't have a primary care physician on staff, we will provide you with a referral. We always advise you to contact your personal physician following an emergency department visit to inform them of the circumstance of the visit and for follow-up with them and/or the need for any referrals to a consulting specialist. The emergency department will also refer you to a specialist when appropriate. This referral assures that you have the opportunity for follow-up care with a specialist. All of these measure are taken in an effort to provide you with optimal care, which includes your follow-up. Under all circumstances we always encourage you to contact your private physician who remains a resource for coordinating your care. When calling for follow-up care, please make the office aware that this follow-up is from your recent emergency room visit. If for any reason you are refused follow-up, please contact the [facility] emergency department at and asked to speak to the emergency department charge nurse. - My Orders Last 24 Hours: My Active Orders 09/14/18 16:34 Chest 2V [CR] Stat 09/14/18 16:37 RT Aerosol Therapy [RC] ASDIRECTED - Assessment/Plan Last 24 Hours: My Active Orders 09/14/18 16:34 Chest 2V [CR] Stat 09/14/18 16:37 RT Aerosol Therapy [RC] ASDIRECTED
[2018-09-14] MEDS ORDERED: Albuterol/Ipratropium 3.0-0.5 MG/3 ML Neb Soln NEB ONE (16:36)
[2018-09-14] MEDS ORDERED: methylPREDNISolone Sodium Succinate 125 MG/2 ML SDV IM ONE (16:36)
--- NOTE | 2018-09-14 17:24 | CR ---
Indication: Cough Technique: Chest 2 views Comparison: None Findings/Impression: Cardiovascular and mediastinum: Heart size and vasculature are normal in caliber and appearance. Mediastinum is within normal limits. Lungs and pleural spaces: Lungs are clear. No sign of infiltrate or mass. No sign of pleural effusion. No pneumothorax. Bones and soft tissues: No significant findings. Dictated by Oz Palmer MD @ 09/14/2018 5:23:29 PM Dictated by: Oz Palmer MD @ 09/14/2018 17:23:34 (Electronically Signed)
[2018-09-14 17:55] VITALS: BP 124/71
== END 2018-09-14 17:15 | disposition home or self-care (01) ==
LOC: MW.ED 16:18
DX: J20.9 Acute bronchitis, unspecified (principal); F17.210 Nicotine dependence, cigarettes, uncomplicated; Z88.6 Allergy status to analgesic agent; Z98.51 Tubal ligation status
CPT/HCPCS: 71046; 96372; 99283; J2930; 99282; J7620-GY

== ENCOUNTER 2019-01-25 23:32 | Emergency (ER) | payer BC, OTHER ==
--- NOTE | 2019-01-25 23:48 | EDM.PDOC ---
<Sara Street Mabel - Last Filed: 01/26/19 00:25> ED HPI GENERAL MEDICAL PROBLEM - General Chief Complaint: General Stated Complaint: NUMBNESS IN FINGERTIPS AND LEFT ARM Time Seen by Provider: 01/25/19 23:42 - Related Data Allergies Allergy/AdvReac Type Severity Reaction Status Date / Time ibuprofen Allergy Swelling Verified 01/25/19 23:47 Home Meds: Home Meds Dextroamphetamine/Amphetamine [Adderall] 60 mg PO DAILY 03/25/18 [History] Diet Pill 01/25/19 [History] ED ROS GENERAL - Review of Systems Review Of Systems: ROS reveals no pertinent complaints other than HPI. Course - Vital Signs Last Recorded V/S: Last Vital Signs Temp 97.2 F 01/26/19 00:36 Pulse 90 01/26/19 00:36 Resp 18 01/26/19 00:36 BP 112/77 01/26/19 00:36 Pulse Ox 100 01/26/19 00:36 - Orders/Labs/Meds Labs: Laboratory Tests 01/25/19 01/25/19 Range/Units 23:50 23:50 WBC 8.86 (4.0-11.0) K/uL RBC 4.49 (4.30-5.90) M/uL Hgb 14.1 (12.0-16.0) g/dL Hct 42.9 (36.0-46.0) % MCV 95.5 (80.0-98.0) fL MCH 31.4 (27.0-32.0) pg MCHC 32.9 (31.0-37.0) g/dL RDW Std Deviation 47.2 (28.0-62.0) fl RDW Coeff of Sulaiman 14 (11.0-15.0) % Plt Count 329 (150-400) K/uL MPV 9.40 (7.40-12.00) fL Neut % (Auto) 63.2 (48.0-80.0) % Lymph % (Auto) 22.7 (16.0-40.0) % [place] % (Auto) 12.9 (0.0-15.0) % Eos % (Auto) 0.9 (0.0-7.0) % Baso % (Auto) 0.3 (0.0-1.5) % Neut # (Auto) 5.6 (1.4-5.7) K/uL Lymph # (Auto) 2.0 (0.6-2.4) K/uL [place] # (Auto) 1.1 H (0.0-0.8) K/uL Eos # (Auto) 0.1 (0.0-0.7) K/uL Baso # (Auto) 0.0 (0.0-0.1) K/uL Nucleated RBC % 0.0 /100WBC Nucleated RBCs # 0 K/uL Sodium 141 (136-145) mmol/L Potassium 4.5 (3.5-5.1) mmol/L Chloride 104 (98-107) mmol/L Carbon Dioxide 28.6 (21.0-32.0) mmol/L BUN 14 (7.0-18.0) mg/dL Creatinine 0.8 (0.6-1.0) mg/dL Est Cr Clr Drug Dosing 97.27 mL/min Estimated GFR (MDRD) > 60.0 ml/min Glucose 78 (74-106) mg/dL Calcium 8.8 (8.5-10.1) mg/dL Total Bilirubin 0.8 (0.2-1.0) mg/dL AST 18 (15-37) IU/L ALT 21 (14-63) IU/L Alkaline Phosphatase 108 (46-116) U/L Total Protein 7.2 (6.4-8.2) g/dL Albumin 3.4 (3.4-5.0) g/dL Globulin 3.8 (2.6-4.0) g/dL Albumin/Globulin Ratio 0.9 (0.9-1.6) Departure - Departure Time of Disposition: 00:25 Disposition: Home, Self-Care 01 Condition: Good Clinical Impression: Paresthesia of both hands - Discharge Information Instructions: Paresthesia, [id number] Referrals: PCP,None [Primary Care Provider] - Forms: ED Department Discharge Additional Instructions: The following information is given to patients seen in the emergency department who are being discharged to home. This information is to outline your options for follow-up care. We provide all patients seen in our emergency department with a follow-up referral. The need for follow-up, as well as the timing and circumstances, are variable depending upon the specifics of your emergency department visit. If you don't have a primary care physician on staff, we will provide you with a referral. We always advise you to contact your personal physician following an emergency department visit to inform them of the circumstance of the visit and for follow-up with them and/or the need for any referrals to a consulting specialist. The emergency department will also refer you to a specialist when appropriate. This referral assures that you have the opportunity for followup care with a specialist. All of these measure are taken in an effort to provide you with optimal care, which includes your followup. Under all circumstances we always encourage you to contact your private physician who remains a resource for coordinating your care. When calling for followup care, please make the office aware that this follow-up is from your recent emergency room visit. If for any reason you are refused follow-up, please contact the [facility] emergency department at and ask to speak to the emergency department charge nurse. [facility] Primary care- [place] [address] Push hydration and please connect with the provider that prescribed. Return to medication and have a conversation with him or her about her symptoms. Continue to try to reduce and/or quit smoking. Return to ER as needed and as discussed <Narciso Nuno E - Last Filed: 01/26/19 13:54> ED HPI GENERAL MEDICAL PROBLEM - General Source of Information: Reports: Patient History Limitations: Reports: No Limitations - History of Present Illness INITIAL COMMENTS - FREE TEXT/NARRATIVE: HISTORY AND PHYSICAL: History of present illness: Patient is a 33-year-old female who presents to the emergency room today with complaints of bilateral hand tingling and numbness sensation. She states this started at approximately 7 PM this evening. She states nothing makes the sensation better or worse. She states a few months ago she had a similar episode and shortly after she had some distal extremity soft tissue swelling which resolved on its own in 24-48 hours. Patient states she does take 60 mg of Adderall daily, has been on this medication for a long time. She recently started a diet pill on January 15, which prescription medication (unsure of name/dosing). Patient denies any fever, chills, headache, change in vision, syncope or near syncope. Denies any chest pain, back pain, shortness of breath or cough. Denies any abdominal pain, nausea, vomiting, diarrhea, constipation or dysuria. Has not noted any blood in urine or stool. Patient has been eating and drinking appropriately. Review of systems: As per history of present illness and below otherwise all systems reviewed and negative. Past medical history: As per history of present illness and as reviewed below otherwise noncontributory. Surgical history: As per history of present illness and as reviewed below otherwise noncontributory. Social history: See social history for further information Family history: As per history of present illness and as reviewed below otherwise noncontributory. Physical exam: General: Well-developed and well-nourished 33-year-old female. Alert and oriented. Nontoxic appearing and in no acute distress. HEENT: Atraumatic, normocephalic, pupils equal and reactive bilaterally, negative for conjunctival pallor or scleral icterus, mucous membranes moist, trachea midline. No drooling or trismus noted. No meningeal signs. No hot potato voice noted. Lungs: Clear to auscultation, breath sounds equal bilaterally, chest nontender. Heart: S1S2, regular rate and rhythm without overt murmur Abdomen: Soft, nondistended, nontender. Negative for masses or hepatosplenomegaly. Negative for costovertebral tenderness. Skin: Intact, warm, dry. No lesions or rashes noted. Extremities: Atraumatic, moves all extremities per self without difficulty or deficits, negative for cords or calf pain. Neurovascular unremarkable. Neuro: Awake, alert, oriented. Cranial nerves II through XII unremarkable. Cerebellum unremarkable. Motor and sensory unremarkable throughout. Exam nonfocal. Notes: This patient was endorsed to Dr Street. She will follow the labs. Diagnostics: CBC, CMP Therapeutics: None Impression: Paraesthesia, bilateral hands Definitive disposition and diagnosis as appropriate pending reevaluation and review of above. 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 ED EXAM, GENERAL - Physical Exam Exam: See Below (See dictation) Course - Vital Signs Last Recorded V/S: Last Vital Signs Temp 97.2 F 01/26/19 00:36 Pulse 90 01/26/19 00:36 Resp 18 01/26/19 00:36 BP 112/77 01/26/19 00:36 Pulse Ox 100 01/26/19 00:36 - Orders/Labs/Meds Labs: Laboratory Tests 01/25/19 01/25/19 Range/Units 23:50 23:50 WBC 8.86 (4.0-11.0) K/uL RBC 4.49 (4.30-5.90) M/uL Hgb 14.1 (12.0-16.0) g/dL Hct 42.9 (36.0-46.0) % MCV 95.5 (80.0-98.0) fL MCH 31.4 (27.0-32.0) pg MCHC 32.9 (31.0-37.0) g/dL RDW Std Deviation 47.2 (28.0-62.0) fl RDW Coeff of Sulaiman 14 (11.0-15.0) % Plt Count 329 (150-400) K/uL MPV 9.40 (7.40-12.00) fL Neut % (Auto) 63.2 (48.0-80.0) % Lymph % (Auto) 22.7 (16.0-40.0) % [place] % (Auto) 12.9 (0.0-15.0) % Eos % (Auto) 0.9 (0.0-7.0) % Baso % (Auto) 0.3 (0.0-1.5) % Neut # (Auto) 5.6 (1.4-5.7) K/uL Lymph # (Auto) 2.0 (0.6-2.4) K/uL [place] # (Auto) 1.1 H (0.0-0.8) K/uL Eos # (Auto) 0.1 (0.0-0.7) K/uL Baso # (Auto) 0.0 (0.0-0.1) K/uL Nucleated RBC % 0.0 /100WBC Nucleated RBCs # 0 K/uL Sodium 141 (136-145) mmol/L Potassium 4.5 (3.5-5.1) mmol/L Chloride 104 (98-107) mmol/L Carbon Dioxide 28.6 (21.0-32.0) mmol/L BUN 14 (7.0-18.0) mg/dL Creatinine 0.8 (0.6-1.0) mg/dL Est Cr Clr Drug Dosing 97.27 mL/min Estimated GFR (MDRD) > 60.0 ml/min Glucose 78 (74-106) mg/dL Calcium 8.8 (8.5-10.1) mg/dL Total Bilirubin 0.8 (0.2-1.0) mg/dL AST 18 (15-37) IU/L ALT 21 (14-63) IU/L Alkaline Phosphatase 108 (46-116) U/L Total Protein 7.2 (6.4-8.2) g/dL Albumin 3.4 (3.4-5.0) g/dL Globulin 3.8 (2.6-4.0) g/dL Albumin/Globulin Ratio 0.9 (0.9-1.6)
[2019-01-26 00:14] LABS: BLOOD UREA NITROGEN,BUN 14 mg/dL (7.0-18.0); CARBON DIOXIDE,CO2 28.6 mmol/L (21.0-32.0); CHLORIDE,CL 104 mmol/L (98-107); GLUCOSE RANDOM 78 mg/dL (74-106); POTASSIUM,K 4.5 mmol/L (3.5-5.1); SODIUM,NA 141 mmol/L (136-145)
[2019-01-26 00:37] VITALS: BP 112/77; PULSE 90
== END 2019-01-26 00:36 | disposition home or self-care (01) ==
LOC: MW.ED 23:32
DX: R20.2 Paresthesia of skin (principal); Z88.6 Allergy status to analgesic agent
CPT/HCPCS: 36415; 80053; 85025; 99284

== ENCOUNTER 2019-10-06 18:15 | Emergency (ER) | payer SELFPAY ==
--- NOTE | 2019-10-06 18:34 | EDM.PDOC ---
<Bienvenido Brito - Last Filed: 10/06/19 21:45> ED HPI GENERAL MEDICAL PROBLEM - General Chief Complaint: Lower Extremity Injury/Pain Stated Complaint: PAIN IN LEFT HIP/LEG Time Seen by Provider: 10/06/19 18:22 - History of Present Illness INITIAL COMMENTS - FREE TEXT/NARRATIVE: Signout received at 7 PM. Patient seen and evaluated by me at 7:15 PM. Patient reports pain to her left hip. Patient reports that she just had a recent long car ride and she spent at least an hour at a time with her left hip flexed and her foot resting on the car seat. Patient reports that when she did that she felt a snap and a burning sensation traveling down her leg. Patient reports that the entire car ride with approximately 29 hours however her leg was not up for that entire time. This occurred approximately 3 days ago. Patient has been having worsening pain since. Patient's reevaluation by me reveals tenderness to palpation to her left hip with full range of motion and weightbearing intact. Patient has no calf tenderness or calf swelling. Patient has no Homans sign. Patient is neurovascularly intact. Patient does have significant tenderness with flexion or external rotation of her left hip. No deformity is appreciated. Patient's x-ray of her left hip reveals no acute fracture or dislocation.. The x-ray was interpreted by radiology revealing a calcification of the lateral left hip possibly representing synovial calcification. There is no additional abnormality seen on the 2 view left hip exam. Given the long car ride, an ultrasound was performed to rule out DVT as the cause of her pain and discomfort. Patient's ultrasound did not reveal any acute deep venous thrombosis. In the ER, the patient has refused any pain medicine secondary to concern about drug screening in the near future. Patient has agreed to take Flexeril in the ED but has declined ibuprofen and Tylenol. I reviewed the results of the ultrasound as well as the x-ray with the patient. I have discussed with her symptomatic treatment at this time with over-the- counter Tylenol and prescription of Flexeril 10 mg every 8 hours. Patient is instructed to follow-up with her primary care physician in the next 1 to 2 days to be reevaluated and possible referral for physical therapy to assist her with her pain. Patient has been instructed to utilize weightbearing as tolerated, ice as needed for pain, rest. Reassessment at the time of disposition demonstrates that the patient is in no acute distress. The patient has remained stable throughout the entire ED visit and is without objective evidence for acute process requiring urgent intervention or hospitalization. The patient is stable for discharge, counseling is provided as documented above, discussed symptomatic treatment and specific conditions for return. I have spoken with the patient/caregive and discussed todays findings, in addition to providing specific details for the plan of care. Questions are answered and there is agreement with the plan. Left Hip Pain Score (Numeric/FACES): 5 - Related Data Allergies Allergy/AdvReac Type Severity Reaction Status Date / Time ibuprofen Allergy Swelling Verified 10/06/19 18:28 Home Meds: Home Meds Dextroamphetamine/Amphetamine [Adderall] 60 mg PO DAILY 03/25/18 [History] Review of Systems - Review of Systems Review Of Systems: Comprehensive ROS is negative, except as noted in HPI. Course - Vital Signs Last Recorded V/S: Last Vital Signs Temp 97.2 F 10/06/19 21:55 Pulse 83 10/06/19 21:55 Resp 18 10/06/19 21:55 BP 101/73 10/06/19 21:55 Pulse Ox 97 10/06/19 21:55 - Orders/Labs/Meds Meds: Medications Discontinued Medications Generic Name Dose Route Start Last Admin Trade Name Freq PRN Reason Stop Dose Admin Cyclobenzaprine HCl 10 mg 10/06/19 19:47 10/06/19 20:24 Flexeril PO 10/06/19 19:48 10 mg ONETIME STA Administration Departure - Departure Time of Disposition: 21:49 Disposition: Home, Self-Care 01 Condition: Good Clinical Impression: Sprain of hip - Discharge Information *PRESCRIPTION DRUG MONITORING PROGRAM REVIEWED*: Not Applicable *COPY OF PRESCRIPTION DRUG MONITORING REPORT IN PATIENT KURTIS: Not Applicable Instructions: Hip Pain, Hip Sprain Referrals: PCP,None [Primary Care Provider] - Forms: ED Department Discharge Additional Instructions: Your x-ray today did not reveal any fracture or dislocation of your left hip. The ultrasound of the obtained did not reveal any evidence of clot in your leg. The x-ray did reveal a calcification of the lateral aspect of your left hip which possibly represents synovial calcification. You will be given a prescription for Flexeril to assist with muscle relaxation. You can weight-bear as tolerated. Please make an appointment to see your family doctor for reevaluation and possible referral to either orthopedics or physical therapy. You can take Tylenol to assist you with the pain in addition to the Flexeril. Sepsis Event Note (ED) - Focused Exam Vital Signs: Vital Signs Temp Pulse Resp BP Pulse Ox 10/06/19 21:55 97.2 F 83 18 101/73 97 <Leonor Gutierrez - Last Filed: 10/07/19 08:15> ED HPI GENERAL MEDICAL PROBLEM - General Source of Information: Reports: Patient - History of Present Illness INITIAL COMMENTS - FREE TEXT/NARRATIVE: History of present illness: 34-year-old female presenting with left hip pain for the last 3 days. It started while she was driving, apparently she usually drives with her hip hyper flexed so her foot rests on the seat. She drove about 29 hours up from [place] in the last few days and at one point while she was driving she felt a twinge in the left posterior hip that radiated down into the foot. It was not too severe but has continued to worsen over the last 3 days. Apparently in the past she felt a pop in her hip and her son was able to maneuver her leg and then she felt what she thinks was her hip popping back into place. This time she did not feel any kind of a hip popping sensation. Review of systems: As per history of present illness and below otherwise all systems reviewed and negative. Past medical history: As per history of present illness and as reviewed below otherwise noncontributory. Surgical history: As per history of present illness and as reviewed below otherwise noncontributory. Social history: No reported history of drug or alcohol abuse. Family history: As per history of present illness and as reviewed below otherwise noncontributory. Physical exam: GEN: no acute distress, well appearing HEENT: Atraumatic, normocephalic, mucous membranes moist, Neck: supple, nontender, trachea midline. Lungs: No respiratory distress. Heart: RRR Abdomen: Soft, nondistended, nontender. Back: nontender Extremities: Left posterior hip tenderness, pain with range of motion of the left hip. Both hips, knees and legs appear aligned. There is no shortening or internal or external rotation. Neurovascularly intact. Was able to ambulate though with a limp. Neuro: Awake, alert, oriented. Neuro Exam nonfocal. Skin: warm, dry, no lesions Diagnostics: [] Therapeutics: [] MDM: Impression: [] Plan: [] Definitive disposition and diagnosis as appropriate pending reevaluation and review of above. 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: 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 History: Reports: None Neurological History: Reports: None Psychiatric History: Reports: Depression Hematologic History: Reports: None - Infectious Disease History Infectious Disease History: Reports: None - Past Surgical History Female Surgical History: Reports: Section, Tubal Ligation Social & Family History - Family History Family Medical History: Noncontributory - Caffeine Use Caffeine Use: Reports: Coffee Caffeine Use Comment: 2cups/day Review of Systems - Review of Systems Review Of Systems: See Below (see Dictation) ED EXAM, GENERAL - Physical Exam Exam: See Below (See dictation) Course - Vital Signs Text/Narrative:: Signed out to Dr. Cardoso at 7 PM pending x-ray notes and if negative plan ultrasound. Last Recorded V/S: Last Vital Signs Temp 97.2 F 10/06/19 21:55 Pulse 83 10/06/19 21:55 Resp 18 10/06/19 21:55 BP 101/73 10/06/19 21:55 Pulse Ox 97 10/06/19 21:55 - Orders/Labs/Meds Meds: Medications Discontinued Medications Generic Name Dose Route Start Last Admin Trade Name Bertq PRN Reason Stop Dose Admin Cyclobenzaprine HCl 10 mg 10/06/19 19:47 10/06/19 20:24 Flexeril PO 10/06/19 19:48 10 mg ONETIME STA Administration Sepsis Event Note (ED) - Focused Exam Vital Signs: Vital Signs Temp Pulse Resp BP Pulse Ox 10/06/19 21:55 97.2 F 83 18 101/73 97
--- NOTE | 2019-10-06 19:13 | CR ---
Left hip: 2 views of the left hip were obtained. Calcification is noted off the lateral left hip. This may represent synovial calcification. This calcification measures approximately 1.5 cm in size. Joint space within the left hip is preserved. No acute fracture or other abnormality is seen. Impression: 1. Calcification off the lateral left hip possibly representing synovial calcification. 2. No additional abnormality is seen on 2 view left hip exam. Diagnostic code #3 Study was dictated in MDT
[2019-10-06] MEDS ORDERED: Cyclobenzaprine 10 MG Tab PO STA (19:47)
--- NOTE | 2019-10-06 21:32 | US ---
Left lower extremity deep venous ultrasound: Duplex and color Doppler evaluation was obtained of the left common femoral, superficial femoral, popliteal, posterior tibial and anterior tibial veins. Findings: No intraluminal thrombus is seen. Compression appears fairly normal. Impression: 1. Nothing is appreciated to indicate deep venous thrombosis. Diagnostic code #1 Study was dictated in MDT
[2019-10-06 22:07] VITALS: BP 101/73; PULSE 83
== END 2019-10-06 21:55 | disposition home or self-care (01) ==
LOC: MW.ED 18:15
DX: S73.102A Unspecified sprain of left hip, initial encounter (principal); Z88.6 Allergy status to analgesic agent; X50.9XXA Other and unspecified overexertion or strenuous movements or postures, initial encounter
CPT/HCPCS: 73502; 93971; 99284; A9270

== ENCOUNTER 2019-10-07 17:10 | Emergency (ER) | payer SELFPAY ==
[2019-10-07 17:24] VITALS: BP 125/70; PULSE 86
[2019-10-07] MEDS ORDERED: Acetaminophen/HYDROcodone 325-5 MG Tab PO ONE (17:29)
--- NOTE | 2019-10-07 17:34 | EDM.PDOC ---
ED HPI GENERAL MEDICAL PROBLEM - General Chief Complaint: Lower Extremity Injury/Pain Stated Complaint: LEFT LEG INJURY Time Seen by Provider: 10/07/19 17:15 Source of Information: Reports: Patient History Limitations: Reports: No Limitations - History of Present Illness INITIAL COMMENTS - FREE TEXT/NARRATIVE: History of present illness: 34-year-old female presenting with ongoing left hip pain. The pain has been going on for the last 4 days. She was seen here yesterday by me and had a negative x-ray and left lower extremity ultrasound. Pain started after she had been driving for many hours with her hip in a flexed position which is the way she usually drives. She was worried that she may have dislocated the hip. However there was no dislocation at that time. She had a driving test she had passed today and therefore she declined any pain medications during her hospital stay. She now returns today reporting that the pain has not improved and requesting that I give her an epidural for her pain control. Discussed with the patient that this is not possible in the emergency department. Review of systems: As per history of present illness and below otherwise all systems reviewed and negative. Past medical history: As per history of present illness and as reviewed below otherwise noncontributory. Surgical history: As per history of present illness and as reviewed below otherwise noncontributory. Social history: No reported history of drug or alcohol abuse. Family history: As per history of present illness and as reviewed below otherwise noncontributory. Physical exam: GEN: no acute distress, well appearing HEENT: Atraumatic, normocephalic, mucous membranes moist, Neck: supple, nontender, trachea midline. Lungs: No respiratory distress. Heart: RRR Abdomen: Soft, nondistended, nontender. Back: nontender Extremities: Intact range of motion, left hip pain/tenderness and pain with range of motion. Lower extremities equal, without any internal or external rotation. Neurovascularly intact. Neuro: Awake, alert, oriented. Neuro Exam nonfocal. Psych: Appears anxious and tearful Skin: warm, dry, no lesions Diagnostics: [] Therapeutics: [] MDM: Patient reporting ongoing hip and thigh pain. Had negative ultrasound and hip x -ray yesterday. Will check femur x-ray and CT hip to evaluate for possible occult fracture given patient's degree of pain. If negative, plan short course of steroids and orthopedic follow-up. X-ray femur and CT hip again show calcified area lateral to the hip, radiology questioning if this may be the cause of the patient's pain. It was discussed with orthopedics who recommends outpatient follow-up. Will give steroids and pain medicines. Impression: [] Plan: [] Definitive disposition and diagnosis as appropriate pending reevaluation and review of above. left leg Pain Score (Numeric/FACES): 8 - Related Data Allergies Allergy/AdvReac Type Severity Reaction Status Date / Time ibuprofen Allergy Swelling Verified 10/07/19 17:21 Home Meds: Home Meds Dextroamphetamine/Amphetamine [Adderall] 60 mg PO DAILY 03/25/18 [History] Acetaminophen/HYDROcodone [[place] 325-5 MG] 1 tab PO Q8H PRN #12 tablet 10/07/19 [Rx] predniSONE [Prednisone] 60 mg PO DAILY #15 tablet 10/07/19 [Rx] Past Medical History - Past Health History Medical/Surgical History: Denies Medical/Surgical History HEENT History: Reports: Other (See Below) Other HEENT History: conjunctivitis Cardiovascular History: Reports: None Respiratory History: Reports: None Gastrointestinal History: Reports: None Genitourinary History: Reports: None 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: 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 History: Reports: None Neurological History: Reports: None Psychiatric History: Reports: Depression Endocrine/Metabolic History: Reports: None Hematologic History: Reports: None Immunologic History: Reports: None Oncologic (Cancer) History: Reports: None Dermatologic History: Reports: None - Infectious Disease History Infectious Disease History: Reports: None - Past Surgical History Head Surgeries/Procedures: Reports: None Cardiovascular Surgical History: Reports: None Respiratory Surgical History: Reports: None GI Surgical History: Reports: None Female Surgical History: Reports: Section, Tubal Ligation Endocrine Surgical History: Reports: None Neurological Surgical History: Reports: None 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 Surgical History: Reports: None Oncologic Surgical History: Reports: None Dermatological Surgical History: Reports: None Social & Family History - Family History Family Medical History: Noncontributory - Tobacco Use Smoking Status *Q: Current Every Day Smoker Years of Tobacco use: 20 Packs/Tins Daily: 0.7 - Caffeine Use Caffeine Use: Reports: None Caffeine Use Comment: 2cups/day - Recreational Drug Use Recreational Drug Use: No Review of Systems - Review of Systems Review Of Systems: See Below (See dictation) ED EXAM, GENERAL - Physical Exam Exam: See Below (See dictation) Course - Vital Signs Last Recorded V/S: Last Vital Signs Temp 97.8 F 10/07/19 17:22 Pulse 86 10/07/19 17:22 Resp 19 10/07/19 17:22 BP 125/70 10/07/19 17:22 Pulse Ox 98 10/07/19 17:22 - Orders/Labs/Meds Meds: Medications Discontinued Medications Generic Name Dose Route Start Last Admin Trade Name Sola PRN Reason Stop Dose Admin Hydrocodone Bitart/Acetaminophen 1 tab 10/07/19 17:29 10/07/19 17:46 [place] 325-5 Mg PO 10/07/19 17:30 1 tab ONETIME ONE Administration Naproxen 220 mg 10/07/19 17:30 10/07/19 17:47 Naproxen Sodium PO 10/07/19 17:31 220 mg ONETIME ONE Administration - Re-Assessments/Exams Free Text/Narrative Re-Assessment/Exam: 10/07/19 18:[address] Esqueda, orthopedics, x-ray and ultrasound from yesterday and today's femur x-ray and CT hip/femur were discussed, as well as radiology recommendation for CT arthrogram. After discussion of the images, he reports he will see the patient outpatient in his office and agrees with plan for short course of steroids. He will perform any additional imaging necessary at that time, per his discretion. 10/07/19 18:49 Results of imaging and recommendations made by orthopedics were discussed with the patient. The patient does report that she is feeling somewhat better, and had a pain level that she can now tolerate. I did discuss with her plan for steroids and orthopedic follow-up. She agrees to do so. She is also requesting prescription for pain medication. Departure - Departure Time of Disposition: 18:49 Disposition: Home, Self-Care 01 Condition: Good Clinical Impression: Hip pain, left - Discharge Information Prescriptions: Acetaminophen/HYDROcodone [[place] 325-5 MG] 1 tab PO Q8H PRN #12 tablet PRN Reason: Pain (Severe 7-10) predniSONE [Prednisone] 60 mg PO DAILY #15 tablet Instructions: 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 Pain, Pain Medicine Instructions, [id number], How to Use Cold Therapy, Joint Pain, [id number] Referrals: PCP,None [Primary Care Provider] - Michael Esqueda DO [Physician] - 2 Days Forms: ED Department Discharge Additional Instructions: The following information is given to patients seen in the emergency department who are being discharged to home. This information is to outline your options for follow-up care. We provide all patients seen in our emergency department with a follow-up referral. The need for follow-up, as well as the timing and circumstances, are variable depending upon the specifics of your emergency department visit. If you don't have a primary care physician on staff, we will provide you with a referral. We always advise you to contact your personal physician following an emergency department visit to inform them of the circumstance of the visit and for follow-up with them and/or the need for any referrals to a consulting specialist. The emergency department will also refer you to a specialist when appropriate. This referral assures that you have the opportunity for follow-up care with a specialist. All of these measure are taken in an effort to provide you with optimal care, which includes your follow-up. Under all circumstances we always encourage you to contact your private physician who remains a resource for coordinating your care. When calling for follow-up care, please make the office aware that this follow-up is from your recent emergency room visit. If for any reason you are refused follow-up, please contact the [facility] Emergency Department at and asked to speak to the emergency department charge nurse. Sepsis Event Note (ED) - Evaluation Sepsis Screening Result: No Definite Risk - Focused Exam Vital Signs: Vital Signs Temp Pulse Resp BP Pulse Ox 10/07/19 17:22 97.8 F 86 19 125/70 98
--- NOTE | 2019-10-07 18:12 | CR ---
Left femur: AP and lateral views left femur were obtained. Comparison: Prior left hip study of 10/06/19. Calcification is again seen off the left hip. Questionable medial joint space narrowing within the knee. No acute fracture or dislocation is seen. Impression: 1. Calcification off the lateral left hip. 2. Possible medial joint space narrowing. Diagnostic code #2 This report was dictated in MDT
--- NOTE | 2019-10-07 18:24 | CT ---
CT left femur Technique: Multiple axial sections through the left femur were obtained. Reconstructed coronal and sagittal images were obtained. Findings: Calcification is again noted off the lateral left hip. This measures about 1.4 cm in greatest dimension. If this is within the joint this could cause some pain due to joint distention. Mild joint space narrowing is seen within the medial joint compartment. No acute fracture or other bony abnormality is seen. No soft tissue abnormality is appreciated. Impression: 1. Bony density off the left lateral hip. As mentioned above, if this is intra-articular this could cause symptoms. Intra-articular location could be confirmed by CT left hip arthrogram. 2. Mild medial joint space narrowing. 3. No additional abnormality is appreciated on CT study of the left femur. Diagnostic code #3 This report was dictated in MDT
[2019-10-07] MEDS ORDERED: predniSONE 20 MG Tab PO ONE (18:48)
== END 2019-10-07 19:00 | disposition home or self-care (01) ==
LOC: MW.ED 17:10
DX: M25.552 Pain in left hip (principal); F32.9 Major depressive disorder, single episode, unspecified; F17.210 Nicotine dependence, cigarettes, uncomplicated; Z88.6 Allergy status to analgesic agent; Z79.899 Other long term (current) drug therapy
CPT/HCPCS: 73552; 73700; 99284; A9270

== ENCOUNTER 2023-07-09 14:28 | Emergency (ER) | payer SELFPAY ==
[2023-07-09 15:00] VITALS: BP 119/56
[2023-07-09] MEDS: Sodium Chloride 0.9% 1,000 ML IV ONE (15:39)
[2023-07-09] MEDS: Ondansetron 4 MG/2 ML SDV IVPUSH ONE (15:40)
[2023-07-09] MEDS: Acetaminophen 500 MG Tab PO ONE (15:41)
[2023-07-09 15:48] LABS: BASOPHILS ABSOLUTE AUTO 0.02 K/uL (0.00-0.20); BASOPHILS PERCENT AUTO 0.2 % (0.0-1.0); EOSINOPHILS ABSOLUTE AUTO 0.15 K/uL (0.00-0.45); EOSINOPHILS PERCENT AUTO 1.4 % (0.0-6.0); HEMATOCRIT 42.9 % (37.0-47.0); IMMATURE GRAN ABSOLUTE AUTO 0.04 K/uL (0.00-0.05); IMMATURE GRAN PERCENT AUTO 0.4 % (0.0-0.4); LYMPHOCYTES ABSOLUTE AUTO 0.29 K/uL (1.00-4.80); LYMPHOCYTES PERCENT AUTO 2.6 % (24.0-44.0); MEAN CORPUSCULAR HEMOGLOBIN 29.7 pg (28.0-32.0); MEAN CORPUSCULAR HGB CONC 32.6 g/dL (32.0-36.0); MEAN CORPUSCULAR VOLUME 91.1 fL (83.0-99.0); MEAN PLATELET VOLUME 9.4 fL (9.4-12.3); MONOCYTES ABSOLUTE AUTO 0.48 K/uL (0.00-0.80); MONOCYTES PERCENT AUTO 4.4 % (0.0-8.0); PLATELET COUNT,PLT 306 K/uL (150-400); RED BLOOD CELL COUNT 4.71 M/uL (4.10-5.30); WHITE BLOOD CELL COUNT,WBC 10.98 K/uL (3.9-11.3)
[2023-07-09 16:19] LABS: A/G RATIO 0.9 (0.9-1.6); ALANINE AMINOTRANSFERASE,ALT 23 IU/L (14-63); ALBUMIN 3.1 g/dL (3.4-5.0); ALKALINE PHOSPHATASE 93 U/L (46-116); ASPARTATE AMNIOTRANSFERASE,AST 18 IU/L (15-37); BILIRUBIN TOTAL 0.3 mg/dL (0.2-1.0); BLOOD UREA NITROGEN,BUN 11 mg/dL (7.0-18.0); CALCIUM 8.4 mg/dL (8.5-10.1); CARBON DIOXIDE,CO2 24.8 mmol/L (21.0-32.0); CHLORIDE,CL 102 mmol/L (98-107); CREATININE 0.9 mg/dL (0.6-1.0); EST CRCL DRUG DOSING (CG) 83.23 mL/min; GLUCOSE RANDOM 118 mg/dL (74-106); LIPASE 28 U/L (16-77); MAGNESIUM 1.7 mg/dL (1.8-2.4); POTASSIUM,K 4.2 mmol/L (3.5-5.1); PROTEIN TOTAL,TP 6.5 g/dL (6.4-8.2); SODIUM,NA 136 mmol/L (136-145); TSH ULTRASENSITIVE 0.33 uIU/mL (0.36-3.74)
[2023-07-09 16:20] LABS: ESTIMATED GFR 84 mL/min (>60); ETHANOL BLOOD MEDICAL < 3.0 mg/dL
[2023-07-09 16:26] LABS: CORONAVIRUS COVID-19 NAA NEGATIVE (NEGATIVE); INFLUENZA A NAA NEGATIVE (NEGATIVE); INFLUENZA B NAA NEGATIVE (NEGATIVE)
[2023-07-09 16:37] LABS: T4 FREE 0.99 ng/dL (0.76-1.46)
[2023-07-09 17:49] LABS: BILIRUBIN,URINE NEGATIVE (NEGATIVE); COLOR,URINE YELLOW; GLUCOSE,URINE NEGATIVE (NEGATIVE); KETONES,URINE NEGATIVE (NEGATIVE); LEUKOCYTE ESTERASE,URINE NEGATIVE (NEGATIVE); NITRITE,URINE NEGATIVE (NEGATIVE); OCCULT BLOOD,URINE NEGATIVE (NEGATIVE); PROTEIN,URINE NEGATIVE (NEGATIVE); UROBILINOGEN,URINE 0.2 EU/dL (<2.0)
[2023-07-09 17:51] LABS: APPEARANCE,URINE CLEAR
[2023-07-09 17:59] LABS: AMPHETAMINES SCREEN, URINE PRESUMPTIVE POSITIVE (CUTOFF=500); BARBITURATE SCREEN,URINE NEGATIVE (CUTOFF=200); BENZODIAZEPINES SCREEN,URINE NEGATIVE (CUTOFF=150); BUPRENORPHINE SCREEN,URINE NEGATIVE (CUTOFF=10); METHADONE SCREEN, URINE NEGATIVE (CUTOFF=200); METHAMPHETAMINES SCREEN, URINE NEGATIVE (CUTOFF=500); OXYCODONE SCREEN,URINE NEGATIVE (CUT0FF=100); PCP SCREEN,URINE NEGATIVE (CUTOFF=25); THC SCREEN,URINE 20 NG/ML NEGATIVE (CUTOFF=50)
[2023-07-09] MEDS: Iopamidol 755 Mg/ML 100 ML Bottle IVPUSH STA (18:04)
[2023-07-09 18:13] VITALS: PULSE 93
== END 2023-07-09 18:13 | disposition home or self-care (01) ==
LOC: MW.ED 14:28
DX: R42 Dizziness and giddiness (principal); Z88.6 Allergy status to analgesic agent; Z75.8 Other problems related to medical facilities and other health care
CPT/HCPCS: 0240U; 36415; 71045; 74177; 80053; 80305; 80307; 81003; 83690; 83735; 84439; 84443; 84484; 84703; 85025; 93005; 96361; 96374; 99285; A9270; J2405; J7030; Q9967; 93010; 99284

== ENCOUNTER 2024-08-04 13:38 | Emergency (ER) | payer SELFPAY ==
[2024-08-04 14:13] VITALS: PULSE 97
[2024-08-04 15:07] LABS: BASOPHILS ABSOLUTE AUTO 0.04 K/uL (0.00-0.20); BASOPHILS PERCENT AUTO 0.3 % (0.0-1.0); EOSINOPHILS ABSOLUTE AUTO 0.06 K/uL (0.00-0.45); EOSINOPHILS PERCENT AUTO 0.5 % (0.0-6.0); HEMATOCRIT 47.9 % (37.0-47.0); IMMATURE GRAN ABSOLUTE AUTO 0.04 K/uL (0.00-0.05); IMMATURE GRAN PERCENT AUTO 0.3 % (0.0-0.4); LYMPHOCYTES ABSOLUTE AUTO 1.78 K/uL (1.00-4.80); LYMPHOCYTES PERCENT AUTO 14.2 % (24.0-44.0); MEAN CORPUSCULAR HEMOGLOBIN 30.4 pg (28.0-32.0); MEAN CORPUSCULAR HGB CONC 33.4 g/dL (32.0-36.0); MEAN CORPUSCULAR VOLUME 91.1 fL (83.0-99.0); MEAN PLATELET VOLUME 9.4 fL (9.4-12.3); MONOCYTES ABSOLUTE AUTO 0.75 K/uL (0.00-0.80); NEUTROPHILS ABSOLUTE AUTO 9.84 K/uL (1.80-7.70); NEUTROPHILS PERCENT AUTO 78.7 % (41.0-71.0); PLATELET COUNT,PLT 344 K/uL (150-400); RED BLOOD CELL COUNT 5.26 M/uL (4.10-5.30); WHITE BLOOD CELL COUNT,WBC 12.51 K/uL (3.9-11.3)
[2024-08-04 15:09] LABS: BASE EXCESS VENOUS 2.6 (-2.0-3.0); PH,VENOUS 7.41 (7.32-7.43)
[2024-08-04 15:42] LABS: ACETAMINOPHEN <2.0 ug/mL; ALANINE AMINOTRANSFERASE,ALT 23 IU/L (14-63); ALBUMIN 3.3 g/dL (3.4-5.0); ALKALINE PHOSPHATASE 107 U/L (46-116); ASPARTATE AMNIOTRANSFERASE,AST 19 IU/L (15-37); BILIRUBIN TOTAL 0.3 mg/dL (0.2-1.0); BLOOD UREA NITROGEN,BUN 13 mg/dL (7.0-18.0); CALCIUM 8.7 mg/dL (8.5-10.1); CARBON DIOXIDE,CO2 26.2 mmol/L (21.0-32.0); CHLORIDE,CL 106 mmol/L (98-107); CREATININE 0.8 mg/dL (0.6-1.0); EST CRCL DRUG DOSING (CG) 91.81 mL/min; ETHANOL BLOOD MEDICAL <3 mg/dL; GLUCOSE RANDOM 102 mg/dL (74-106); MAGNESIUM 2.1 mg/dL (1.8-2.4); POTASSIUM,K 4.4 mmol/L (3.5-5.1); PROTEIN TOTAL,TP 6.7 g/dL (6.4-8.2); SALICYLATE 2.5 mg/dL (0.0-20.0); SODIUM,NA 140 mmol/L (136-145); TSH ULTRASENSITIVE 1.42 uIU/mL (0.36-3.74)
[2024-08-04 15:43] LABS: ESTIMATED GFR 96 mL/min (>60)
[2024-08-04 16:19] LABS: AMPHETAMINES SCREEN, URINE PRESUMPTIVE POSITIVE (CUTOFF=500); BARBITURATE SCREEN,URINE NEGATIVE (CUTOFF=200); BENZODIAZEPINES SCREEN,URINE NEGATIVE (CUTOFF=150); BUPRENORPHINE SCREEN,URINE NEGATIVE (CUTOFF=10); METHADONE SCREEN, URINE NEGATIVE (CUTOFF=200); METHAMPHETAMINES SCREEN, URINE NEGATIVE (CUTOFF=500); OXYCODONE SCREEN,URINE NEGATIVE (CUT0FF=100); PCP SCREEN,URINE NEGATIVE (CUTOFF=25); THC SCREEN,URINE 20 NG/ML NEGATIVE (CUTOFF=50)
[2024-08-04] MEDS: OLANZapine 5 MG Tab.DIS PO PRN (18:29)
== END 2024-08-04 18:30 ==
LOC: MW.ED 13:38
DX: T14.91XA Suicide attempt, initial encounter (principal); Z88.6 Allergy status to analgesic agent; Z79.899 Other long term (current) drug therapy
CPT/HCPCS: 36415; 80053; 80143; 80179; 80305; 80307; 82803; 83735; 84443; 84703; 85025; 99285; A9270; 99284

== ENCOUNTER 2024-12-04 13:48 | Emergency (ER) | payer MEDICAID ==
[2024-12-04 17:05] VITALS: BP 160/118; PULSE 93
[2024-12-04] MEDS ORDERED: Diphtheria,Pertussis(Acell),Tetanus Vaccine 0.5 ML Syringe IM ONE (18:35)
== END 2024-12-04 19:01 | disposition home or self-care (01) ==
LOC: MW.ED 13:48
DX: S61.012A Laceration without foreign body of left thumb without damage to nail, initial encounter (principal); Z88.6 Allergy status to analgesic agent; Z79.899 Other long term (current) drug therapy; Z75.3 Unavailability and inaccessibility of health-care facilities; W23.1XXA Caught, crushed, jammed, or pinched between stationary objects, initial encounter
CPT/HCPCS: 12001; 73140-26-FA; 73140-FA; 99283